=== PATIENT | male | born 1950 | race Hispanic/Latino ===

== ENCOUNTER 2021-03-19 14:05 | Inpatient (IN) | payer OTHER ==
[~2021-03-19] VITALS: Ht 152.4 cm; Wt 54.9 kg
[~2021-03-19 14:05] MED LIST: ASPI-1197 PO; CILO50TA PO; CLON0.5T4 PO; FURO20TA4 PO; ISOS60TA77 PO; METF-444 PO; METO25TA6 PO; NITR0.4T SL; PANT40TA54 PO; TRAM50TA4 PO; VALS40TA11 PO
[2021-03-19 14:34] LABS: BASOPHILS % (AUTO) 0.1 % (0.0-5.0); HEMATOCRIT 41.5 % (42-54); LYMPHOCYTES % (AUTO) 9.3 % (21.0-51.0); MEAN CORPUSCULAR HEMOGLOBIN 28.9 pg (27.0-33.0); MEAN CORPUSCULAR HGB CONC 32.8 g/dL (32.0-36.0); MEAN CORPUSCULAR VOLUME 88.1 fL (79-99); MONOCYTES % (AUTO) 8.1 % (3.0-13.0); PLATELET COUNT (AUTO) 185 K/uL (130-400); RED BLOOD CELL COUNT(AUTO) 4.71 MIL/uL (4.50-6.20); RED CELL DISTRIBUTION WIDTH 15.1 % (11.0-15.5); WHITE BLOOD COUNT (AUTO) 11.4 K/uL (4.8-10.8)
[2021-03-19 14:42] LABS: CREATININE 1.1 mg/dL (0.5-1.5); POTASSIUM 4.4 mmol/L (3.5-5.1)
[2021-03-19 14:44] LABS: ABG BASE EXCESS -2.6 mmol/L (-2.0-3.0); ABG HCO3 20.4 mmol/L (21.0-28.0); ABG OXYGEN SATURATION 82.9 % (95.0-99.0); ABG PCO2 31 mmHg (35-48)
[2021-03-19 14:47] VITALS: BP 133/67
[2021-03-19 14:52] LABS: ALBUMIN 2.6 g/dL (3.5-5.0); BILIRUBIN,TOTAL 0.8 mg/dL (0.2-1.0); CRP QUANTITATIVE 118.3 mg/L (0.00-9.0); TOTAL PROTEIN, SERUM 7.7 g/dL (6.0-8.3)
[2021-03-19 17:00] VITALS: BP 114/74
[2021-03-19] MEDS ORDERED: GLUCAGON 1MG KIT 1 MG ML IM PRN (17:00)
[2021-03-19] MEDS ORDERED: VANCOMYCIN PROTOCOL PER PHARMACY IV SCH (17:00)
[2021-03-19] MEDS ORDERED: LACTATED RINGERS 1000ML 1,000 ML IV SCH (17:00)
[2021-03-19] MEDS ORDERED: DEXAMETHASONE SOD PHOSPHATE 4 MG/ML 1ML VIAL IVP SCH (17:00)
[2021-03-19] MEDS ORDERED: PHARMACY COMMUNICATION***REMDESIVIR ORDER MISC SCH (17:00)
[2021-03-19] MEDS ORDERED: DEXTROSE 50%-WATER 50 ML DISP.SYRIN IV PRN (17:00)
[2021-03-19 17:18] LABS: HEMOGLOBIN A1C 7.7 % (4.0-6.0)
[2021-03-19] MEDS ORDERED: ACETAMINOPHEN 325 MG TAB PO PRN (17:30)
[2021-03-19] MEDS ORDERED: ACETAMINOPHEN WITH CODEINE 1 TAB TAB PO PRN (17:30)
[2021-03-19] MEDS ORDERED: GUAIFENESIN-DM 200/20 MG 10 ML PO PRN (17:30)
[2021-03-19] MEDS ORDERED: ONDANSETRON 4MG INJ IV PRN (17:30)
[2021-03-19] MEDS ORDERED: LACTULOSE 20 GM/30 ML UDCUP PO PRN (17:30)
[2021-03-19] MEDS ORDERED: HYDRALAZINE 20MG/ML VIAL IV PRN (17:30)
[2021-03-19] MEDS ORDERED: DIPHENHYDRAMINE HCL 25 MG CAPSULE PO PRN (17:30)
[2021-03-19] MEDS ORDERED: MAG/ALUM/SIMETH 30 ML UDCUP PO PRN (17:30)
[2021-03-19] MEDS ORDERED: NITROGLYCERIN 0.4 MG SL TAB SL PRN (17:30)
[2021-03-19] MEDS ORDERED: FAMOTIDINE 20MG VIAL IV SCH (17:35)
[2021-03-19] MEDS ORDERED: COMPOUND IV REFRIGERATED 1 EACH IVSOLN MISC PRN (18:00)
[2021-03-19] MEDS: 0.9% NACL 250ML IVPB SCH (18:12)
[2021-03-19] MEDS: DOXYCYCLINE 100MG+NS 250ML IV SCH (18:12)
[2021-03-19] MEDS: ENOXAPARIN SODIUM 30 MG/0.3 ML SQ SCH ×2 (18:12→21:00)
[2021-03-19] MEDS: CEFEPIME HCL 2 GM VIAL IVP SCH (18:12)
[2021-03-19] MEDS: VANCOMYCIN 1G/250ML KIT 250 ML IV SCH (18:13)
[2021-03-19 18:22] VITALS: BP 116/72
[2021-03-19] MEDS ORDERED: ALBUTEROL INHALER 90MCG/INH IH PRN (18:30)
[2021-03-19 19:24] VITALS: BP 122/67
[2021-03-19] MEDS ORDERED: REMDESIVIR (EUA) 520 200 MG in 0.9% NACL 250ML 250 ML IV SCH (20:00)
[2021-03-19] MEDS ORDERED: ATORVASTATIN 20 MG TABLET PO SCH (21:00)
[2021-03-19] MEDS: INSULIN HUMULIN R 100 UNIT/ML 3ML SQ SCH (21:00)
[2021-03-19 23:19] VITALS: BP 131/74
[2021-03-20] VITALS (9 sets, daily range): BP systolic 105–153; BP diastolic 61–81
[2021-03-20] MEDS ORDERED: 0.9%NACL 100ML 100 ML ONE (05:35)
[2021-03-20] MEDS: 0.9% NACL 250ML IVPB SCH ×2 (05:52→18:27)
[2021-03-20] MEDS: DOXYCYCLINE 100MG+NS 250ML IV SCH ×2 (05:52→18:27)
[2021-03-20] MEDS: CEFEPIME HCL 2 GM VIAL IVP SCH ×2 (05:52→18:27)
[2021-03-20] MEDS ORDERED: IOHEXOL 350 MG/ML 100ML INFUS..BTL IV ONE (06:17)
[2021-03-20] MEDS ORDERED: PHARMACY COMMUNICATION MISC SCH (06:30)
[2021-03-20] MEDS: REMDESIVIR LABS MISC SCH (06:54)
[2021-03-20] MEDS: DEXAMETHASONE SOD PHOSPHATE 4 MG/ML 1ML VIAL IVP SCH (06:54)
[2021-03-20] MEDS: LEVOTHYROXINE 50 MCG TABLET PO SCH (07:11)
[2021-03-20 07:13] LABS: ALBUMIN 2.1 g/dL (3.5-5.0); BILIRUBIN,TOTAL 0.7 mg/dL (0.2-1.0); CRP QUANTITATIVE 101.2 mg/L (0.00-9.0); POTASSIUM 4.2 mmol/L (3.5-5.1); TOTAL PROTEIN, SERUM 6.7 g/dL (6.0-8.3)
[2021-03-20] MEDS: INSULIN HUMULIN R 100 UNIT/ML 3ML SQ SCH ×4 (07:30→20:23)
[2021-03-20] MEDS: PANTOPRAZOLE 40 MG/VIAL IVP SCH (08:42)
[2021-03-20] MEDS: ENOXAPARIN SODIUM 40 MG/0.4 ML SYRINGE SQ SCH ×2 (08:42→21:00)
[2021-03-20] MEDS: BARICITINIB (EUA) 2 MG TABLET PO SCH (08:42)
[2021-03-20] MEDS ORDERED: ENOXAPARIN SODIUM 0.5 MG/KG EACH SQ SCH (09:00)
[2021-03-20] MEDS ORDERED: LISINOPRIL 20 MG TABLET PO SCH (09:00)
[2021-03-20] MEDS ORDERED: CLOPIDOGREL 75MG TAB PO SCH (09:00)
[2021-03-20] MEDS ORDERED: ASPIRIN 325MG TAB ONE (12:03)
[2021-03-20 17:18] LABS: BASOPHILS % (AUTO) 0.1 % (0.0-5.0); HEMATOCRIT 38.4 % (42-54); LYMPHOCYTES % (AUTO) 14.5 % (21.0-51.0); MEAN CORPUSCULAR HEMOGLOBIN 28.2 pg (27.0-33.0); MEAN CORPUSCULAR HGB CONC 32.3 g/dL (32.0-36.0); MEAN CORPUSCULAR VOLUME 87.3 fL (79-99); NEUTROPHILS % (AUTO) 78.7 % (40.0-77.0); PLATELET COUNT (AUTO) 182 K/uL (130-400); WHITE BLOOD COUNT (AUTO) 6.7 K/uL (4.8-10.8)
[2021-03-20] MEDS: VANCOMYCIN 1G/250ML KIT 250 ML IV SCH (18:27)
[2021-03-20] MEDS: ATORVASTATIN 40 MG TABLET PO SCH (21:05)
[2021-03-20] MEDS: REMDESIVIR (EUA) 520 100 MG in 0.9% NACL 250ML 250 ML IV SCH (21:05)
[2021-03-21] VITALS (11 sets, daily range): BP systolic 129–160; BP diastolic 51–80
[2021-03-21] MEDS: CEFEPIME HCL 2 GM VIAL IVP SCH ×2 (05:29→17:25)
[2021-03-21] MEDS: DOXYCYCLINE 100MG+NS 250ML IV SCH ×2 (05:29→17:25)
[2021-03-21] MEDS: 0.9% NACL 250ML IVPB SCH ×2 (05:29→17:25)
[2021-03-21] MEDS: REMDESIVIR LABS MISC SCH (06:00)
[2021-03-21] MEDS: LEVOTHYROXINE 50 MCG TABLET PO SCH (06:25)
[2021-03-21] MEDS: DEXAMETHASONE SOD PHOSPHATE 4 MG/ML 1ML VIAL IVP SCH ×3 (06:25→21:00)
[2021-03-21] MEDS: INSULIN HUMULIN R 100 UNIT/ML 3ML SQ SCH ×4 (07:30→20:30)
[2021-03-21 08:21] LABS: BASOPHILS % (AUTO) 0.2 % (0.0-5.0); EOSINOPHILS % (AUTO) 0.1 % (0.0-8.0); HEMATOCRIT 41.8 % (42-54); LYMPHOCYTES % (AUTO) 9.4 % (21.0-51.0); MEAN CORPUSCULAR HEMOGLOBIN 28.8 pg (27.0-33.0); MEAN CORPUSCULAR HGB CONC 32.5 g/dL (32.0-36.0); MEAN CORPUSCULAR VOLUME 88.4 fL (79-99); MONOCYTES % (AUTO) 5.9 % (3.0-13.0); NEUTROPHILS % (AUTO) 83.2 % (40.0-77.0); PLATELET COUNT (AUTO) 173 K/uL (130-400); RED BLOOD CELL COUNT(AUTO) 4.73 MIL/uL (4.50-6.20); RED CELL DISTRIBUTION WIDTH 15.1 % (11.0-15.5); WHITE BLOOD COUNT (AUTO) 9.6 K/uL (4.8-10.8)
[2021-03-21 08:39] LABS: CRP QUANTITATIVE 95.5 mg/L (0.00-9.0)
[2021-03-21] MEDS ORDERED: ENOXAPARIN SODIUM 0.5 MG/KG EACH SQ SCH (09:00)
[2021-03-21] MEDS ORDERED: ENOXAPARIN SODIUM 40 MG/0.4 ML SYRINGE SQ SCH (09:00)
[2021-03-21] MEDS: PANTOPRAZOLE 40 MG/VIAL IVP SCH (10:21)
[2021-03-21] MEDS: BARICITINIB (EUA) 2 MG TABLET PO SCH (10:21)
[2021-03-21 11:47] LABS: ALBUMIN 2.4 g/dL (3.5-5.0); BILIRUBIN,DIRECT 0.3 mg/dL (0.0-0.3); TOTAL PROTEIN, SERUM 6.9 g/dL (6.0-8.3)
[2021-03-21] MEDS: VANCOMYCIN 1G/250ML KIT 250 ML IV SCH (19:09)
[2021-03-21 20:07] LABS: APPEARANCE,URINE Clear (CLEAR); BILIRUBIN,URINE Negative (NEGATIVE); COLOR,URINE Yellow (YELLOW); GLUCOSE, URINE (UA) Negative (NEGATIVE); KETONES,URINE Negative (NEGATIVE); LEUKOCYTE ESTERASE ,URINE Negative (NEGATIVE); NITRATE,URINE Negative (NEGATIVE); OCCULT BLOOD,URINE Negative (NEGATIVE); PH,URINE 6.5 (5.0-8.0); PROTEIN,URINE POS 1+ mg/dL (NEGATIVE); UROBILINOGEN,URINE 0.2 mg/dL (0.2-1.0)
[2021-03-21 20:15] LABS: BACTERIA,URINE Rare /HPF (None Seen); RBC,URINE 0-1 /HPF (0-1); SQUAMOUS EPITHELIAL CELL,UR Rare /HPF (0-2); WBC,URINE 0-1 /HPF (0-1)
[2021-03-21] MEDS: ENOXAPARIN SODIUM 40 MG/0.4 ML SYRINGE SQ SCH (20:30)
[2021-03-21] MEDS: ATORVASTATIN 40 MG TABLET PO SCH (20:30)
[2021-03-21] MEDS: REMDESIVIR (EUA) 520 100 MG in 0.9% NACL 250ML 250 ML IV SCH (20:38)
[2021-03-22] VITALS (32 sets, daily range): BP systolic 119–177; BP diastolic 59–96
[2021-03-22] MEDS ORDERED: PROPOFOL 1000 MG/100 ML 100 ML IV ONE (01:19)
[2021-03-22 03:58] LABS: BASOPHILS % (AUTO) 0.1 % (0.0-5.0); HEMATOCRIT 37.8 % (42-54); LYMPHOCYTES % (AUTO) 8.9 % (21.0-51.0); MEAN CORPUSCULAR HEMOGLOBIN 28.5 pg (27.0-33.0); MEAN CORPUSCULAR HGB CONC 32.8 g/dL (32.0-36.0); MEAN CORPUSCULAR VOLUME 86.9 fL (79-99); NEUTROPHILS % (AUTO) 83.3 % (40.0-77.0); PLATELET COUNT (AUTO) 182 K/uL (130-400); RED BLOOD CELL COUNT(AUTO) 4.35 MIL/uL (4.50-6.20); WHITE BLOOD COUNT (AUTO) 8.7 K/uL (4.8-10.8)
[2021-03-22 04:08] LABS: HEMOGLOBIN A1C 7.9 % (4.0-6.0)
[2021-03-22 04:25] LABS: ALBUMIN 2.2 g/dL (3.5-5.0); BILIRUBIN,TOTAL 0.8 mg/dL (0.2-1.0); CREATININE 0.8 mg/dL (0.5-1.5); CRP QUANTITATIVE 64.9 mg/L (0.00-9.0); POTASSIUM 4.4 mmol/L (3.5-5.1); TOTAL PROTEIN, SERUM 6.6 g/dL (6.0-8.3)
[2021-03-22 04:28] LABS: ABG BASE EXCESS -4.4 mmol/L (-2.0-3.0); ABG HCO3 18.5 mmol/L (21.0-28.0); ABG OXYGEN SATURATION 94.5 % (95.0-99.0); ABG PCO2 29 mmHg (35-48)
[2021-03-22] MEDS: DOXYCYCLINE 100MG+NS 250ML IV SCH ×2 (05:40→17:15)
[2021-03-22] MEDS: 0.9% NACL 250ML IVPB SCH ×2 (05:40→17:15)
[2021-03-22] MEDS: CEFEPIME HCL 2 GM VIAL IVP SCH ×2 (05:40→17:15)
[2021-03-22] MEDS: REMDESIVIR LABS MISC SCH (06:24)
[2021-03-22] MEDS: LEVOTHYROXINE 50 MCG TABLET PO SCH (06:32)
[2021-03-22] MEDS: INSULIN HUMULIN R 100 UNIT/ML 3ML SQ SCH ×4 (07:30→20:53)
[2021-03-22] MEDS: PANTOPRAZOLE 40 MG/VIAL IVP SCH (09:56)
[2021-03-22] MEDS: DEXAMETHASONE SOD PHOSPHATE 4 MG/ML 1ML VIAL IVP SCH ×2 (09:56→20:48)
[2021-03-22] MEDS: ENOXAPARIN SODIUM 40 MG/0.4 ML SYRINGE SQ SCH ×2 (09:57→20:52)
[2021-03-22] MEDS: CLOPIDOGREL 75MG TAB PO SCH (09:57)
[2021-03-22] MEDS: BARICITINIB (EUA) 2 MG TABLET PO SCH (11:22)
[2021-03-22] MEDS ORDERED: CLOP75TA32 PO (15:50)
[2021-03-22] MEDS ORDERED: AMIT50TA3 PO (15:50)
[2021-03-22] MEDS ORDERED: LEVO50CA4 PO (15:50)
[2021-03-22] MEDS ORDERED: ZINC220C6 PO (15:50)
[2021-03-22] MEDS ORDERED: ACET-2247 PO (15:50)
[2021-03-22] MEDS ORDERED: ATOR40TA71 PO (15:50)
[2021-03-22] MEDS ORDERED: SERT-438 PO (15:50)
[2021-03-22] MEDS ORDERED: METF-444 PO (15:50)
[2021-03-22] MEDS ORDERED: PREG100C55 PO (15:50)
[2021-03-22] MEDS ORDERED: AZIT250T9 PO (15:55)
[2021-03-22] MEDS: VANCOMYCIN 1G/250ML KIT 250 ML IV SCH (18:27)
[2021-03-22] MEDS: REMDESIVIR (EUA) 520 100 MG in 0.9% NACL 250ML 250 ML IV SCH (20:47)
[2021-03-22] MEDS: ATORVASTATIN 40 MG TABLET PO SCH (20:48)
[2021-03-23] VITALS (24 sets, daily range): BP systolic 105–153; BP diastolic 52–86
[2021-03-23 04:53] LABS: BASOPHILS % (AUTO) 0.2 % (0.0-5.0); HEMATOCRIT 42.6 % (42-54); LYMPHOCYTES % (AUTO) 6.6 % (21.0-51.0); MEAN CORPUSCULAR HEMOGLOBIN 28.4 pg (27.0-33.0); MEAN CORPUSCULAR HGB CONC 31.7 g/dL (32.0-36.0); MEAN CORPUSCULAR VOLUME 89.5 fL (79-99); MONOCYTES % (AUTO) 5.3 % (3.0-13.0); NEUTROPHILS % (AUTO) 86.5 % (40.0-77.0); PLATELET COUNT (AUTO) 172 K/uL (130-400); RED BLOOD CELL COUNT(AUTO) 4.76 MIL/uL (4.50-6.20); RED CELL DISTRIBUTION WIDTH 14.9 % (11.0-15.5); WHITE BLOOD COUNT (AUTO) 8.7 K/uL (4.8-10.8)
[2021-03-23 05:30] LABS: ALBUMIN 2.3 g/dL (3.5-5.0); CREATININE 0.9 mg/dL (0.5-1.5); CRP QUANTITATIVE 50.9 mg/L (0.00-9.0); POTASSIUM 4.8 mmol/L (3.5-5.1)
[2021-03-23] MEDS: CEFEPIME HCL 2 GM VIAL IVP SCH ×2 (05:36→16:03)
[2021-03-23] MEDS: 0.9% NACL 250ML IVPB SCH ×2 (05:36→16:03)
[2021-03-23] MEDS: DOXYCYCLINE 100MG+NS 250ML IV SCH ×2 (05:36→16:03)
[2021-03-23] MEDS: INSULIN HUMULIN R 100 UNIT/ML 3ML SQ SCH ×4 (05:47→21:00)
[2021-03-23] MEDS: LEVOTHYROXINE 50 MCG TABLET PO SCH (06:25)
[2021-03-23] MEDS: REMDESIVIR LABS MISC SCH (06:25)
[2021-03-23 06:49] LABS: BILIRUBIN,TOTAL 0.9 mg/dL (0.2-1.0)
[2021-03-23] MEDS: BARICITINIB (EUA) 2 MG TABLET PO SCH (08:15)
[2021-03-23] MEDS: DEXAMETHASONE SOD PHOSPHATE 4 MG/ML 1ML VIAL IVP SCH ×2 (08:15→21:16)
[2021-03-23] MEDS: PANTOPRAZOLE 40 MG/VIAL IVP SCH (08:15)
[2021-03-23] MEDS: ENOXAPARIN SODIUM 40 MG/0.4 ML SYRINGE SQ SCH (08:16)
[2021-03-23] MEDS: CLOPIDOGREL 75MG TAB PO SCH (08:47)
[2021-03-23] MEDS ORDERED: ENOXAPARIN SODIUM 30 MG/0.3 ML SQ SCH (09:00)
[2021-03-23] MEDS ORDERED: DEXMEDETOMIDINE 400MCG/NS100ML IV PRN (09:00)
[2021-03-23] MEDS: VANCOMYCIN 1G/250ML KIT 250 ML IV SCH (17:40)
[2021-03-23] MEDS: REMDESIVIR (EUA) 520 100 MG in 0.9% NACL 250ML 250 ML IV SCH (20:44)
[2021-03-23] MEDS: ATORVASTATIN 40 MG TABLET PO SCH (21:17)
[2021-03-24] VITALS (21 sets, daily range): BP systolic 71–145; BP diastolic 26–79
[2021-03-24] MEDS: ENOXAPARIN SODIUM 60 MG/0.6 ML SQ SCH ×2 (01:31→11:55)
[2021-03-24 04:17] LABS: BASOPHILS % (AUTO) 0.1 % (0.0-5.0); EOSINOPHILS % (AUTO) 0.1 % (0.0-8.0); HEMATOCRIT 38.3 % (42-54); LYMPHOCYTES % (AUTO) 4.1 % (21.0-51.0); MEAN CORPUSCULAR HEMOGLOBIN 28.4 pg (27.0-33.0); MEAN CORPUSCULAR HGB CONC 33.2 g/dL (32.0-36.0); MEAN CORPUSCULAR VOLUME 85.7 fL (79-99); MONOCYTES % (AUTO) 3.4 % (3.0-13.0); NEUTROPHILS % (AUTO) 91.3 % (40.0-77.0); PLATELET COUNT (AUTO) 168 K/uL (130-400); RED BLOOD CELL COUNT(AUTO) 4.47 MIL/uL (4.50-6.20); RED CELL DISTRIBUTION WIDTH 14.7 % (11.0-15.5); WHITE BLOOD COUNT (AUTO) 11.9 K/uL (4.8-10.8)
[2021-03-24] MEDS: DOXYCYCLINE 100MG+NS 250ML IV SCH ×2 (04:30→17:52)
[2021-03-24] MEDS: 0.9% NACL 250ML IVPB SCH ×2 (04:30→17:52)
[2021-03-24] MEDS: CEFEPIME HCL 2 GM VIAL IVP SCH ×2 (04:30→17:52)
[2021-03-24 04:35] LABS: ALBUMIN 2.1 g/dL (3.5-5.0); BILIRUBIN,TOTAL 0.9 mg/dL (0.2-1.0); CREATININE 0.8 mg/dL (0.5-1.5); CRP QUANTITATIVE 33.8 mg/L (0.00-9.0); POTASSIUM 4.7 mmol/L (3.5-5.1); TOTAL PROTEIN, SERUM 6.4 g/dL (6.0-8.3)
[2021-03-24] MEDS: LEVOTHYROXINE 50 MCG TABLET PO SCH (05:51)
[2021-03-24] MEDS: INSULIN HUMULIN R 100 UNIT/ML 3ML SQ SCH ×4 (08:00→20:40)
[2021-03-24] MEDS: PANTOPRAZOLE 40 MG/VIAL IVP SCH (09:04)
[2021-03-24] MEDS: CLOPIDOGREL 75MG TAB PO SCH (09:04)
[2021-03-24] MEDS: DEXAMETHASONE SOD PHOSPHATE 4 MG/ML 1ML VIAL IVP SCH ×2 (09:05→20:31)
[2021-03-24] MEDS: BARICITINIB (EUA) 2 MG TABLET PO SCH (09:05)
[2021-03-24] MEDS: FLUCONAZOLE 200 MG/NS 100 ML 100 ML IV SCH (11:55)
[2021-03-24] MEDS ORDERED: PREGABALIN 100 MG CAPSULE PO PRN (13:30)
[2021-03-24] MEDS: VANCOMYCIN 1G/250ML KIT 250 ML IV SCH (19:46)
[2021-03-24] MEDS: AMITRIPTYLINE 25 MG TABLET PO SCH (20:31)
[2021-03-24] MEDS: ATORVASTATIN 40 MG TABLET PO SCH (20:31)
[2021-03-25] VITALS (16 sets, daily range): BP systolic 105–141; BP diastolic 53–76
[2021-03-25 04:42] LABS: BASOPHILS % (AUTO) 0.2 % (0.0-5.0); HEMATOCRIT 38.3 % (42-54); LYMPHOCYTES % (AUTO) 3.8 % (21.0-51.0); MEAN CORPUSCULAR HEMOGLOBIN 28.4 pg (27.0-33.0); MEAN CORPUSCULAR HGB CONC 32.9 g/dL (32.0-36.0); MEAN CORPUSCULAR VOLUME 86.5 fL (79-99); MONOCYTES % (AUTO) 2.6 % (3.0-13.0); NEUTROPHILS % (AUTO) 91.9 % (40.0-77.0); PLATELET COUNT (AUTO) 145 K/uL (130-400); RED BLOOD CELL COUNT(AUTO) 4.43 MIL/uL (4.50-6.20); RED CELL DISTRIBUTION WIDTH 14.6 % (11.0-15.5); WHITE BLOOD COUNT (AUTO) 11.7 K/uL (4.8-10.8)
[2021-03-25] MEDS: CEFEPIME HCL 2 GM VIAL IVP SCH ×2 (05:01→17:11)
[2021-03-25] MEDS: 0.9% NACL 250ML IVPB SCH ×2 (05:01→17:11)
[2021-03-25] MEDS: DOXYCYCLINE 100MG+NS 250ML IV SCH ×2 (05:01→17:11)
[2021-03-25 05:02] LABS: ALBUMIN 2.1 g/dL (3.5-5.0); BILIRUBIN,TOTAL 0.9 mg/dL (0.2-1.0); CREATININE 0.8 mg/dL (0.5-1.5); CRP QUANTITATIVE 34.8 mg/L (0.00-9.0); POTASSIUM 4.6 mmol/L (3.5-5.1); TOTAL PROTEIN, SERUM 6.3 g/dL (6.0-8.3)
[2021-03-25] MEDS: LEVOTHYROXINE 50 MCG TABLET PO SCH (06:06)
[2021-03-25] MEDS: VANCOMYCIN 1G/250ML KIT 250 ML IV SCH ×2 (06:06→19:36)
[2021-03-25] MEDS: INSULIN HUMULIN R 100 UNIT/ML 3ML SQ SCH ×4 (06:13→20:23)
[2021-03-25] MEDS: ENOXAPARIN SODIUM 60 MG/0.6 ML SQ SCH ×2 (09:37→20:17)
[2021-03-25] MEDS: BARICITINIB (EUA) 2 MG TABLET PO SCH (10:55)
[2021-03-25] MEDS: DEXAMETHASONE SOD PHOSPHATE 4 MG/ML 1ML VIAL IVP SCH ×2 (10:55→20:16)
[2021-03-25] MEDS: PANTOPRAZOLE 40 MG/VIAL IVP SCH (10:55)
[2021-03-25] MEDS: FLUCONAZOLE 200 MG/NS 100 ML 100 ML IV SCH (10:55)
[2021-03-25] MEDS: SERTRALINE HCL 50 MG TABLET PO SCH (10:56)
[2021-03-25] MEDS: CLOPIDOGREL 75MG TAB PO SCH (10:56)
[2021-03-25] MEDS: AMITRIPTYLINE 25 MG TABLET PO SCH (20:16)
[2021-03-25] MEDS: ATORVASTATIN 40 MG TABLET PO SCH (20:16)
[2021-03-26] VITALS (11 sets, daily range): BP systolic 119–148; BP diastolic 65–82
[2021-03-26] MEDS: 0.9% NACL 250ML IVPB SCH ×2 (04:59→16:17)
[2021-03-26] MEDS: CEFEPIME HCL 2 GM VIAL IVP SCH ×2 (04:59→16:14)
[2021-03-26] MEDS: DOXYCYCLINE 100MG+NS 250ML IV SCH ×2 (05:00→16:13)
[2021-03-26 05:50] LABS: BASOPHILS % (AUTO) 0.2 % (0.0-5.0); LYMPHOCYTES % (AUTO) 3.8 % (21.0-51.0); MEAN CORPUSCULAR HEMOGLOBIN 28.5 pg (27.0-33.0); MEAN CORPUSCULAR VOLUME 86.4 fL (79-99); MONOCYTES % (AUTO) 4.8 % (3.0-13.0); PLATELET COUNT (AUTO) 128 K/uL (130-400); RED BLOOD CELL COUNT(AUTO) 4.28 MIL/uL (4.50-6.20); RED CELL DISTRIBUTION WIDTH 14.9 % (11.0-15.5)
[2021-03-26] MEDS: INSULIN HUMULIN R 100 UNIT/ML 3ML SQ SCH ×4 (05:54→21:00)
[2021-03-26 06:21] LABS: ALBUMIN 1.9 g/dL (3.5-5.0); BILIRUBIN,TOTAL 0.8 mg/dL (0.2-1.0); CREATININE 0.8 mg/dL (0.5-1.5); CRP QUANTITATIVE 12.8 mg/L (0.00-9.0); POTASSIUM 4.4 mmol/L (3.5-5.1); TOTAL PROTEIN, SERUM 5.8 g/dL (6.0-8.3)
[2021-03-26] MEDS: VANCOMYCIN 1G/250ML KIT 250 ML IV SCH ×2 (06:30→18:20)
[2021-03-26] MEDS: LEVOTHYROXINE 50 MCG TABLET PO SCH ×2 (06:30→10:35)
[2021-03-26] MEDS: FLUCONAZOLE 200 MG/NS 100 ML 100 ML IV SCH (09:40)
[2021-03-26] MEDS: DEXAMETHASONE SOD PHOSPHATE 4 MG/ML 1ML VIAL IVP SCH ×2 (09:43→21:33)
[2021-03-26] MEDS: PANTOPRAZOLE 40 MG/VIAL IVP SCH (09:43)
[2021-03-26] MEDS: ENOXAPARIN SODIUM 60 MG/0.6 ML SQ SCH ×2 (09:46→21:33)
[2021-03-26] MEDS: BARICITINIB (EUA) 2 MG TABLET PO SCH (09:46)
[2021-03-26] MEDS: SERTRALINE HCL 50 MG TABLET PO SCH (09:47)
[2021-03-26] MEDS: CLOPIDOGREL 75MG TAB PO SCH ×2 (09:47→10:34)
[2021-03-26] MEDS: ATORVASTATIN 40 MG TABLET PO SCH ×2 (21:00→21:32)
[2021-03-26] MEDS: AMITRIPTYLINE 25 MG TABLET PO SCH (21:32)
[2021-03-27] VITALS (7 sets, daily range): BP systolic 91–137; BP diastolic 65–77
[2021-03-27 03:53] LABS: BASOPHILS % (AUTO) 0.1 % (0.0-5.0); HEMATOCRIT 40.7 % (42-54); LYMPHOCYTES % (AUTO) 4.7 % (21.0-51.0); MEAN CORPUSCULAR HEMOGLOBIN 28.7 pg (27.0-33.0); MEAN CORPUSCULAR HGB CONC 32.4 g/dL (32.0-36.0); MEAN CORPUSCULAR VOLUME 88.5 fL (79-99); MONOCYTES % (AUTO) 3.8 % (3.0-13.0); NEUTROPHILS % (AUTO) 90.2 % (40.0-77.0); PLATELET COUNT (AUTO) 124 K/uL (130-400); RED CELL DISTRIBUTION WIDTH 15.2 % (11.0-15.5); WHITE BLOOD COUNT (AUTO) 10.3 K/uL (4.8-10.8)
[2021-03-27 04:17] LABS: CREATININE 0.9 mg/dL (0.5-1.5); CRP QUANTITATIVE 5.3 mg/L (0.00-9.0); POTASSIUM 4.6 mmol/L (3.5-5.1); TOTAL PROTEIN, SERUM 6.1 g/dL (6.0-8.3)
[2021-03-27] MEDS: DOXYCYCLINE 100MG+NS 250ML IV SCH ×2 (05:43→17:02)
[2021-03-27] MEDS: CEFEPIME HCL 2 GM VIAL IVP SCH ×2 (05:43→16:59)
[2021-03-27] MEDS: LEVOTHYROXINE 50 MCG TABLET PO SCH ×2 (05:44)
[2021-03-27] MEDS: VANCOMYCIN 1G/250ML KIT 250 ML IV SCH ×2 (05:51→17:28)
[2021-03-27] MEDS: INSULIN HUMULIN R 100 UNIT/ML 3ML SQ SCH ×4 (06:59→21:28)
[2021-03-27] MEDS: DEXAMETHASONE SOD PHOSPHATE 4 MG/ML 1ML VIAL IVP SCH ×2 (09:00→21:26)
[2021-03-27] MEDS: CLOPIDOGREL 75MG TAB PO SCH ×2 (09:00→09:13)
[2021-03-27] MEDS: SERTRALINE HCL 50 MG TABLET PO SCH ×2 (09:00→09:12)
[2021-03-27] MEDS: BARICITINIB (EUA) 2 MG TABLET PO SCH (09:09)
[2021-03-27] MEDS: ENOXAPARIN SODIUM 60 MG/0.6 ML SQ SCH ×2 (09:14→21:31)
[2021-03-27] MEDS: PANTOPRAZOLE 40 MG/VIAL IVP SCH (14:18)
[2021-03-27] MEDS: FLUCONAZOLE 200 MG/NS 100 ML 100 ML IV SCH (14:22)
[2021-03-27] MEDS: 0.9% NACL 250ML IVPB SCH (17:02)
[2021-03-27] MEDS: ATORVASTATIN 40 MG TABLET PO SCH ×2 (21:00→21:27)
[2021-03-27] MEDS: AMITRIPTYLINE 25 MG TABLET PO SCH (21:27)
[2021-03-28 03:57] VITALS: BP 105/68
[2021-03-28 05:09] LABS: BASOPHILS % (AUTO) 0.1 % (0.0-5.0); EOSINOPHILS % (AUTO) 0.2 % (0.0-8.0); HEMATOCRIT 38.6 % (42-54); MEAN CORPUSCULAR HEMOGLOBIN 28.5 pg (27.0-33.0); MEAN CORPUSCULAR HGB CONC 32.9 g/dL (32.0-36.0); MEAN CORPUSCULAR VOLUME 86.7 fL (79-99); MONOCYTES % (AUTO) 3.7 % (3.0-13.0); NEUTROPHILS % (AUTO) 90.7 % (40.0-77.0); PLATELET COUNT (AUTO) 121 K/uL (130-400); RED BLOOD CELL COUNT(AUTO) 4.45 MIL/uL (4.50-6.20); RED CELL DISTRIBUTION WIDTH 15.1 % (11.0-15.5); WHITE BLOOD COUNT (AUTO) 10.1 K/uL (4.8-10.8)
[2021-03-28] MEDS: CEFEPIME HCL 2 GM VIAL IVP SCH ×3 (05:17→20:30)
[2021-03-28] MEDS: DOXYCYCLINE 100MG+NS 250ML IV SCH ×3 (05:18→21:48)
[2021-03-28] MEDS: 0.9% NACL 250ML IVPB SCH (05:18)
[2021-03-28 05:58] LABS: CREATININE 0.7 mg/dL (0.5-1.5); CRP QUANTITATIVE 5.7 mg/L (0.00-9.0); POTASSIUM 4.7 mmol/L (3.5-5.1)
[2021-03-28] MEDS: VANCOMYCIN 1G/250ML KIT 250 ML IV SCH ×2 (06:23→18:36)
[2021-03-28] MEDS: LEVOTHYROXINE 50 MCG TABLET PO SCH ×2 (06:23→06:24)
[2021-03-28] MEDS: INSULIN HUMULIN R 100 UNIT/ML 3ML SQ SCH ×4 (06:25→20:45)
[2021-03-28 07:40] VITALS: BP 100/70
[2021-03-28] MEDS: SERTRALINE HCL 50 MG TABLET PO SCH ×2 (09:00→09:43)
[2021-03-28] MEDS: CLOPIDOGREL 75MG TAB PO SCH ×2 (09:00→09:43)
[2021-03-28] MEDS: FLUCONAZOLE 200 MG/NS 100 ML 100 ML IV SCH (09:42)
[2021-03-28] MEDS: PANTOPRAZOLE 40 MG/VIAL IVP SCH (09:43)
[2021-03-28] MEDS: ENOXAPARIN SODIUM 60 MG/0.6 ML SQ SCH ×2 (09:43→20:32)
[2021-03-28] MEDS: DEXAMETHASONE SOD PHOSPHATE 4 MG/ML 1ML VIAL IVP SCH ×2 (09:44→20:30)
[2021-03-28] MEDS: BARICITINIB (EUA) 2 MG TABLET PO SCH (09:45)
[2021-03-28] MEDS: 0.9% NACL 250ML 250 ML IV SCH ×2 (09:49→21:48)
[2021-03-28] MEDS ORDERED: DOXYCYCLINE 100MG+NS 250ML IV SCH (10:00)
[2021-03-28] MEDS ORDERED: 0.9% NACL 250ML IVPB SCH (10:00)
[2021-03-28 11:54] VITALS: BP 105/77
[2021-03-28 19:50] VITALS: BP 113/72
[2021-03-28] MEDS: AMITRIPTYLINE 25 MG TABLET PO SCH (20:30)
[2021-03-28] MEDS: ATORVASTATIN 40 MG TABLET PO SCH (20:31)
[2021-03-28 23:58] VITALS: BP 118/67
[2021-03-29] MEDS: 0.9% NACL 250ML 250 ML IV SCH ×6 (01:29→22:11)
[2021-03-29] MEDS: VANCOMYCIN 750MG VIAL IVPB SCH ×3 (01:29→17:55)
[2021-03-29 03:08] VITALS: BP 111/64
[2021-03-29 04:41] LABS: BASOPHILS % (AUTO) 0.1 % (0.0-5.0); HEMATOCRIT 36.9 % (42-54); LYMPHOCYTES % (AUTO) 4.6 % (21.0-51.0); MEAN CORPUSCULAR HEMOGLOBIN 28.3 pg (27.0-33.0); MEAN CORPUSCULAR VOLUME 88.5 fL (79-99); NEUTROPHILS % (AUTO) 88.9 % (40.0-77.0); PLATELET COUNT (AUTO) 116 K/uL (130-400); RED BLOOD CELL COUNT(AUTO) 4.17 MIL/uL (4.50-6.20); RED CELL DISTRIBUTION WIDTH 15.1 % (11.0-15.5); WHITE BLOOD COUNT (AUTO) 9.7 K/uL (4.8-10.8)
[2021-03-29 04:56] LABS: ALBUMIN 1.9 g/dL (3.5-5.0); BILIRUBIN,TOTAL 0.8 mg/dL (0.2-1.0); CREATININE 0.7 mg/dL (0.5-1.5); CRP QUANTITATIVE 12.4 mg/L (0.00-9.0); POTASSIUM 4.4 mmol/L (3.5-5.1); TOTAL PROTEIN, SERUM 5.6 g/dL (6.0-8.3)
[2021-03-29] MEDS: INSULIN HUMULIN R 100 UNIT/ML 3ML SQ SCH ×4 (06:25→20:52)
[2021-03-29] MEDS: LEVOTHYROXINE 50 MCG TABLET PO SCH ×2 (06:38)
[2021-03-29 08:11] VITALS: BP 116/80
[2021-03-29] MEDS: CLOPIDOGREL 75MG TAB PO SCH ×2 (09:00→09:31)
[2021-03-29] MEDS: ENOXAPARIN SODIUM 60 MG/0.6 ML SQ SCH ×2 (09:30→20:51)
[2021-03-29] MEDS: BARICITINIB (EUA) 2 MG TABLET PO SCH (09:31)
[2021-03-29] MEDS: DEXAMETHASONE SOD PHOSPHATE 4 MG/ML 1ML VIAL IVP SCH ×2 (09:31→20:50)
[2021-03-29] MEDS: CEFEPIME HCL 2 GM VIAL IVP SCH ×2 (09:32→20:50)
[2021-03-29] MEDS: DOXYCYCLINE 100MG+NS 250ML IV SCH ×2 (09:33→22:11)
[2021-03-29] MEDS: FLUCONAZOLE 200 MG/NS 100 ML 100 ML IV SCH (09:41)
[2021-03-29] MEDS: SERTRALINE HCL 50 MG TABLET PO SCH (09:41)
[2021-03-29] MEDS: PANTOPRAZOLE 40 MG TAB DR PO SCH (09:45)
[2021-03-29] MEDS ORDERED: PANTOPRAZOLE 40 MG TAB DR PO SCH (10:00)
[2021-03-29 12:04] VITALS: BP 111/74
[2021-03-29 16:01] VITALS: BP 113/75
[2021-03-29 20:10] VITALS: BP 109/74
[2021-03-29] MEDS: AMITRIPTYLINE 25 MG TABLET PO SCH (20:50)
[2021-03-29] MEDS: ATORVASTATIN 40 MG TABLET PO SCH (20:50)
[2021-03-30] VITALS: BP 112/72
[2021-03-30] MEDS: VANCOMYCIN 750MG VIAL IVPB SCH ×3 (02:03→17:43)
[2021-03-30] MEDS: 0.9% NACL 250ML 250 ML IV SCH ×5 (02:03→22:02)
[2021-03-30 04:02] VITALS: BP 128/74
[2021-03-30 06:16] LABS: BASOPHILS % (AUTO) 0.2 % (0.0-5.0); HEMATOCRIT 36.3 % (42-54); LYMPHOCYTES % (AUTO) 3.8 % (21.0-51.0); MEAN CORPUSCULAR HEMOGLOBIN 28.4 pg (27.0-33.0); MEAN CORPUSCULAR HGB CONC 32.8 g/dL (32.0-36.0); MEAN CORPUSCULAR VOLUME 86.6 fL (79-99); MONOCYTES % (AUTO) 5.8 % (3.0-13.0); NEUTROPHILS % (AUTO) 88.8 % (40.0-77.0); PLATELET COUNT (AUTO) 103 K/uL (130-400); RED BLOOD CELL COUNT(AUTO) 4.19 MIL/uL (4.50-6.20); RED CELL DISTRIBUTION WIDTH 15.2 % (11.0-15.5); WHITE BLOOD COUNT (AUTO) 12.2 K/uL (4.8-10.8)
[2021-03-30] MEDS: INSULIN HUMULIN R 100 UNIT/ML 3ML SQ SCH ×4 (06:16→21:26)
[2021-03-30] MEDS: LEVOTHYROXINE 50 MCG TABLET PO SCH (06:20)
[2021-03-30 06:29] LABS: ALBUMIN 1.9 g/dL (3.5-5.0); BILIRUBIN,TOTAL 0.7 mg/dL (0.2-1.0); CREATININE 0.7 mg/dL (0.5-1.5); CRP QUANTITATIVE 3.5 mg/L (0.00-9.0); MAGNESIUM 2.1 mg/dL (1.80-2.40); POTASSIUM 4.5 mmol/L (3.5-5.1); TOTAL PROTEIN, SERUM 5.7 g/dL (6.0-8.3)
[2021-03-30 08:00] VITALS: BP 104/66
[2021-03-30] MEDS: PANTOPRAZOLE 40 MG TAB DR PO SCH (09:18)
[2021-03-30] MEDS: DEXAMETHASONE SOD PHOSPHATE 4 MG/ML 1ML VIAL IVP SCH (09:18)
[2021-03-30] MEDS: SERTRALINE HCL 50 MG TABLET PO SCH (09:19)
[2021-03-30] MEDS: BARICITINIB (EUA) 2 MG TABLET PO SCH (09:19)
[2021-03-30] MEDS: CLOPIDOGREL 75MG TAB PO SCH (09:19)
[2021-03-30] MEDS: DOXYCYCLINE 100MG+NS 250ML IV SCH ×2 (09:21→22:02)
[2021-03-30] MEDS: FLUCONAZOLE 200 MG/NS 100 ML 100 ML IV SCH (09:22)
[2021-03-30] MEDS: CEFEPIME HCL 2 GM VIAL IVP SCH ×2 (09:22→21:11)
[2021-03-30] MEDS: ENOXAPARIN SODIUM 60 MG/0.6 ML SQ SCH ×2 (09:23→21:11)
[2021-03-30 12:00] VITALS: BP 130/74
[2021-03-30 16:00] VITALS: BP 122/60
[2021-03-30 19:10] VITALS: BP 138/82
[2021-03-30] MEDS: AMITRIPTYLINE 25 MG TABLET PO SCH (21:09)
[2021-03-30] MEDS: ATORVASTATIN 40 MG TABLET PO SCH (21:09)
[2021-03-31] VITALS (7 sets, daily range): BP systolic 99–136; BP diastolic 60–77
[2021-03-31] MEDS: LEVOTHYROXINE 50 MCG TABLET PO SCH ×2 (01:04→06:14)
[2021-03-31] MEDS: 0.9% NACL 250ML 250 ML IV SCH ×5 (02:02→22:06)
[2021-03-31] MEDS: VANCOMYCIN 750MG VIAL IVPB SCH ×3 (02:02→18:05)
[2021-03-31 04:38] LABS: BASOPHILS % (AUTO) 0.1 % (0.0-5.0); EOSINOPHILS % (AUTO) 0.3 % (0.0-8.0); LYMPHOCYTES % (AUTO) 5.9 % (21.0-51.0); MEAN CORPUSCULAR HEMOGLOBIN 29.2 pg (27.0-33.0); MEAN CORPUSCULAR HGB CONC 33.2 g/dL (32.0-36.0); MEAN CORPUSCULAR VOLUME 87.9 fL (79-99); MONOCYTES % (AUTO) 7.6 % (3.0-13.0); NEUTROPHILS % (AUTO) 84.6 % (40.0-77.0); PLATELET COUNT (AUTO) 101 K/uL (130-400); RED BLOOD CELL COUNT(AUTO) 4.21 MIL/uL (4.50-6.20); RED CELL DISTRIBUTION WIDTH 15.5 % (11.0-15.5)
[2021-03-31 05:07] LABS: ALBUMIN 1.9 g/dL (3.5-5.0); BILIRUBIN,TOTAL 0.6 mg/dL (0.2-1.0); CREATININE 0.6 mg/dL (0.5-1.5); CRP QUANTITATIVE 6.4 mg/L (0.00-9.0); POTASSIUM 4.4 mmol/L (3.5-5.1); TOTAL PROTEIN, SERUM 5.8 g/dL (6.0-8.3)
[2021-03-31] MEDS: INSULIN HUMULIN R 100 UNIT/ML 3ML SQ SCH ×4 (06:03→20:33)
[2021-03-31] MEDS: PANTOPRAZOLE 40 MG TAB DR PO SCH (08:47)
[2021-03-31] MEDS: FLUCONAZOLE 200 MG/NS 100 ML 100 ML IV SCH (08:47)
[2021-03-31] MEDS: BARICITINIB (EUA) 2 MG TABLET PO SCH (08:47)
[2021-03-31] MEDS: CLOPIDOGREL 75MG TAB PO SCH (08:47)
[2021-03-31] MEDS: SERTRALINE HCL 50 MG TABLET PO SCH (08:48)
[2021-03-31] MEDS: ENOXAPARIN SODIUM 60 MG/0.6 ML SQ SCH ×2 (08:48→20:31)
[2021-03-31] MEDS: DEXAMETHASONE SOD PHOSPHATE 4 MG/ML 1ML VIAL IVP SCH (08:49)
[2021-03-31] MEDS: CEFEPIME HCL 2 GM VIAL IVP SCH ×2 (08:54→20:30)
[2021-03-31] MEDS: DOXYCYCLINE 100MG+NS 250ML IV SCH ×2 (09:59→22:06)
[2021-03-31] MEDS: ATORVASTATIN 40 MG TABLET PO SCH (20:30)
[2021-03-31] MEDS: AMITRIPTYLINE 25 MG TABLET PO SCH (20:30)
[2021-04-01] MEDS: VANCOMYCIN 750MG VIAL IVPB SCH ×3 (02:00→18:00)
[2021-04-01] MEDS: 0.9% NACL 250ML 250 ML IV SCH ×5 (02:00→18:00)
[2021-04-01 03:56] VITALS: BP 102/84
[2021-04-01 04:44] LABS: BASOPHILS % (AUTO) 0.1 % (0.0-5.0); EOSINOPHILS % (AUTO) 0.8 % (0.0-8.0); HEMATOCRIT 34.1 % (42-54); LYMPHOCYTES % (AUTO) 7.4 % (21.0-51.0); MEAN CORPUSCULAR HEMOGLOBIN 28.9 pg (27.0-33.0); MEAN CORPUSCULAR HGB CONC 33.4 g/dL (32.0-36.0); MEAN CORPUSCULAR VOLUME 86.5 fL (79-99); MONOCYTES % (AUTO) 6.6 % (3.0-13.0); NEUTROPHILS % (AUTO) 83.9 % (40.0-77.0); PLATELET COUNT (AUTO) 82 K/uL (130-400); RED BLOOD CELL COUNT(AUTO) 3.94 MIL/uL (4.50-6.20); RED CELL DISTRIBUTION WIDTH 15.4 % (11.0-15.5); WHITE BLOOD COUNT (AUTO) 10.5 K/uL (4.8-10.8)
[2021-04-01 04:59] LABS: ALBUMIN 1.6 g/dL (3.5-5.0); BILIRUBIN,TOTAL 0.6 mg/dL (0.2-1.0); CREATININE 0.7 mg/dL (0.5-1.5); CRP QUANTITATIVE 91.8 mg/L (0.00-9.0); MAGNESIUM 2.1 mg/dL (1.80-2.40); POTASSIUM 4.3 mmol/L (3.5-5.1); TOTAL PROTEIN, SERUM 5.4 g/dL (6.0-8.3)
[2021-04-01] MEDS: LEVOTHYROXINE 50 MCG TABLET PO SCH ×2 (05:37→06:12)
[2021-04-01] MEDS: INSULIN HUMULIN R 100 UNIT/ML 3ML SQ SCH ×4 (06:12→21:14)
[2021-04-01 08:30] VITALS: BP 107/68
[2021-04-01] MEDS: PANTOPRAZOLE 40 MG TAB DR PO SCH (10:26)
[2021-04-01] MEDS: CLOPIDOGREL 75MG TAB PO SCH (10:28)
[2021-04-01] MEDS: DEXAMETHASONE SOD PHOSPHATE 4 MG/ML 1ML VIAL IVP SCH (10:29)
[2021-04-01] MEDS: BARICITINIB (EUA) 2 MG TABLET PO SCH (10:31)
[2021-04-01] MEDS: SERTRALINE HCL 50 MG TABLET PO SCH (10:40)
[2021-04-01] MEDS: ENOXAPARIN SODIUM 60 MG/0.6 ML SQ SCH (10:40)
[2021-04-01] MEDS: CEFEPIME HCL 2 GM VIAL IVP SCH ×2 (12:49→21:03)
[2021-04-01] MEDS: DOXYCYCLINE 100MG+NS 250ML IV SCH ×2 (12:49→22:49)
[2021-04-01 12:52] VITALS: BP 108/54
[2021-04-01 16:50] VITALS: BP 112/63
[2021-04-01 19:44] VITALS: BP 113/70
[2021-04-01] MEDS: ATORVASTATIN 40 MG TABLET PO SCH (21:02)
[2021-04-01] MEDS: AMITRIPTYLINE 25 MG TABLET PO SCH (21:02)
[2021-04-01] MEDS: ENOXAPARIN SODIUM 40 MG/0.4 ML SYRINGE SQ SCH (21:03)
[2021-04-01 23:13] VITALS: BP 140/74
[2021-04-02] MEDS: LEVOTHYROXINE 50 MCG TABLET PO SCH ×2 (01:44→06:11)
[2021-04-02] MEDS: 0.9% NACL 250ML 250 ML IV SCH ×5 (01:59→21:15)
[2021-04-02] MEDS: VANCOMYCIN 750MG VIAL IVPB SCH ×2 (01:59→10:11)
[2021-04-02 03:57] VITALS: BP 155/71
[2021-04-02 04:47] LABS: BASOPHILS % (AUTO) 0.2 % (0.0-5.0); HEMATOCRIT 35.4 % (42-54); LYMPHOCYTES % (AUTO) 7.7 % (21.0-51.0); MEAN CORPUSCULAR HEMOGLOBIN 28.6 pg (27.0-33.0); MEAN CORPUSCULAR HGB CONC 32.8 g/dL (32.0-36.0); MEAN CORPUSCULAR VOLUME 87.4 fL (79-99); MONOCYTES % (AUTO) 4.5 % (3.0-13.0); NEUTROPHILS % (AUTO) 85.1 % (40.0-77.0); PLATELET COUNT (AUTO) 75 K/uL (130-400); RED BLOOD CELL COUNT(AUTO) 4.05 MIL/uL (4.50-6.20); RED CELL DISTRIBUTION WIDTH 15.7 % (11.0-15.5); WHITE BLOOD COUNT (AUTO) 9.3 K/uL (4.8-10.8)
[2021-04-02 05:11] LABS: ALBUMIN 1.7 g/dL (3.5-5.0); BILIRUBIN,TOTAL 0.7 mg/dL (0.2-1.0); CREATININE 0.6 mg/dL (0.5-1.5); CRP QUANTITATIVE 119.8 mg/L (0.00-9.0); POTASSIUM 4.3 mmol/L (3.5-5.1); TOTAL PROTEIN, SERUM 5.7 g/dL (6.0-8.3)
[2021-04-02] MEDS: INSULIN HUMULIN R 100 UNIT/ML 3ML SQ SCH ×4 (06:04→20:41)
[2021-04-02 08:02] VITALS: BP 117/66
[2021-04-02] MEDS: DOXYCYCLINE 100MG+NS 250ML IV SCH ×2 (08:55→21:15)
[2021-04-02] MEDS: CLOPIDOGREL 75MG TAB PO SCH (08:56)
[2021-04-02] MEDS: SERTRALINE HCL 50 MG TABLET PO SCH (08:56)
[2021-04-02] MEDS: ENOXAPARIN SODIUM 40 MG/0.4 ML SYRINGE SQ SCH ×2 (08:56→20:37)
[2021-04-02] MEDS: PANTOPRAZOLE 40 MG TAB DR PO SCH (08:56)
[2021-04-02] MEDS: DEXAMETHASONE SOD PHOSPHATE 4 MG/ML 1ML VIAL IVP SCH ×3 (08:57→21:10)
[2021-04-02] MEDS: CEFEPIME HCL 2 GM VIAL IVP SCH (08:58)
[2021-04-02] MEDS: BARICITINIB (EUA) 2 MG TABLET PO SCH (08:58)
[2021-04-02 11:33] VITALS: BP 104/71
[2021-04-02 15:49] VITALS: BP 108/71
[2021-04-02 19:49] VITALS: BP 122/67
[2021-04-02] MEDS: AMITRIPTYLINE 25 MG TABLET PO SCH (20:36)
[2021-04-02] MEDS: ATORVASTATIN 40 MG TABLET PO SCH (20:37)
[2021-04-02] MEDS: INSULIN GLARGINE 100 UNITS/ML 10 ML VIAL SQ SCH (20:40)
[2021-04-02] MEDS: VANCOMYCIN KIT 1 GM/250 ML IV.KIT IV SCH (21:14)
[2021-04-02 23:19] VITALS: BP 126/78
[2021-04-03 03:25] VITALS: BP 136/67
[2021-04-03 04:21] LABS: BASOPHILS % (AUTO) 0.1 % (0.0-5.0); EOSINOPHILS % (AUTO) 0.2 % (0.0-8.0); HEMATOCRIT 36.1 % (42-54); LYMPHOCYTES % (AUTO) 4.9 % (21.0-51.0); MEAN CORPUSCULAR HGB CONC 33.2 g/dL (32.0-36.0); MEAN CORPUSCULAR VOLUME 87.2 fL (79-99); NEUTROPHILS % (AUTO) 90.1 % (40.0-77.0); PLATELET COUNT (AUTO) 70 K/uL (130-400); RED BLOOD CELL COUNT(AUTO) 4.14 MIL/uL (4.50-6.20); RED CELL DISTRIBUTION WIDTH 15.9 % (11.0-15.5); WHITE BLOOD COUNT (AUTO) 9.3 K/uL (4.8-10.8)
[2021-04-03 04:38] LABS: ALBUMIN 1.7 g/dL (3.5-5.0); BILIRUBIN,TOTAL 0.6 mg/dL (0.2-1.0); CREATININE 0.7 mg/dL (0.5-1.5); CRP QUANTITATIVE 62.4 mg/L (0.00-9.0); POTASSIUM 4.7 mmol/L (3.5-5.1); TOTAL PROTEIN, SERUM 5.8 g/dL (6.0-8.3)
[2021-04-03] MEDS: INSULIN HUMULIN R 100 UNIT/ML 3ML SQ SCH ×4 (05:41→21:28)
[2021-04-03] MEDS: LEVOTHYROXINE 50 MCG TABLET PO SCH ×2 (06:23)
[2021-04-03 07:49] VITALS: BP 115/73
[2021-04-03] MEDS: VANCOMYCIN KIT 1 GM/250 ML IV.KIT IV SCH (08:19)
[2021-04-03] MEDS: ZINC SULFATE 220 CAPSULE PO SCH (08:20)
[2021-04-03] MEDS: ASCORBIC ACID 500 MG TAB PO SCH (08:20)
[2021-04-03] MEDS: 0.9% NACL 250ML 250 ML IV SCH ×4 (08:20→21:24)
[2021-04-03] MEDS: CLOPIDOGREL 75MG TAB PO SCH (08:20)
[2021-04-03] MEDS: PANTOPRAZOLE 40 MG TAB DR PO SCH (08:21)
[2021-04-03] MEDS: ENOXAPARIN SODIUM 40 MG/0.4 ML SYRINGE SQ SCH ×2 (08:21→21:24)
[2021-04-03] MEDS: SERTRALINE HCL 50 MG TABLET PO SCH (08:21)
[2021-04-03] MEDS: DEXAMETHASONE SOD PHOSPHATE 4 MG/ML 1ML VIAL IVP SCH ×2 (08:22→21:22)
[2021-04-03] MEDS: BARICITINIB (EUA) 2 MG TABLET PO SCH (08:23)
[2021-04-03] MEDS: DOXYCYCLINE 100MG+NS 250ML IV SCH ×2 (10:06→21:24)
[2021-04-03 11:53] VITALS: BP 115/61
[2021-04-03] MEDS: AMOX/CLAV 875/125MG TAB PO SCH ×2 (12:03→23:16)
[2021-04-03 16:22] VITALS: BP 119/75
[2021-04-03 19:27] VITALS: BP 126/70
[2021-04-03] MEDS: ATORVASTATIN 40 MG TABLET PO SCH (21:22)
[2021-04-03] MEDS: AMITRIPTYLINE 25 MG TABLET PO SCH (21:23)
[2021-04-03] MEDS: INSULIN GLARGINE 100 UNITS/ML 10 ML VIAL SQ SCH (21:26)
[2021-04-03 23:19] VITALS: BP 142/83
[2021-04-03 23:42] LABS: INR 1.07 (0.85-1.15); PROTHROMBIN TIME 11.6 SEC (9.6-11.6)
[2021-04-04] MEDS: LEVOTHYROXINE 50 MCG TABLET PO SCH ×2 (01:02→06:49)
[2021-04-04 03:08] VITALS: BP 131/74
[2021-04-04 05:23] LABS: BASOPHILS % (AUTO) 0.1 % (0.0-5.0); EOSINOPHILS % (AUTO) 0.2 % (0.0-8.0); HEMATOCRIT 35.2 % (42-54); LYMPHOCYTES % (AUTO) 6.3 % (21.0-51.0); MEAN CORPUSCULAR HEMOGLOBIN 28.5 pg (27.0-33.0); MEAN CORPUSCULAR HGB CONC 32.4 g/dL (32.0-36.0); MONOCYTES % (AUTO) 3.3 % (3.0-13.0); NEUTROPHILS % (AUTO) 88.6 % (40.0-77.0); PLATELET COUNT (AUTO) 70 K/uL (130-400); RED CELL DISTRIBUTION WIDTH 15.8 % (11.0-15.5)
[2021-04-04 05:45] LABS: ALBUMIN 1.8 g/dL (3.5-5.0); BILIRUBIN,TOTAL 0.6 mg/dL (0.2-1.0); CREATININE 0.7 mg/dL (0.5-1.5); CRP QUANTITATIVE 24.3 mg/L (0.00-9.0); POTASSIUM 4.6 mmol/L (3.5-5.1); TOTAL PROTEIN, SERUM 5.8 g/dL (6.0-8.3)
[2021-04-04] MEDS: INSULIN HUMULIN R 100 UNIT/ML 3ML SQ SCH ×4 (06:49→22:13)
[2021-04-04 07:48] VITALS: BP 117/82
[2021-04-04] MEDS: 0.9% NACL 250ML 250 ML IV SCH ×4 (09:20→21:43)
[2021-04-04] MEDS: BARICITINIB (EUA) 2 MG TABLET PO SCH (09:20)
[2021-04-04] MEDS: PANTOPRAZOLE 40 MG TAB DR PO SCH (09:21)
[2021-04-04] MEDS: ASCORBIC ACID 500 MG TAB PO SCH (09:21)
[2021-04-04] MEDS: ZINC SULFATE 220 CAPSULE PO SCH (09:21)
[2021-04-04] MEDS: CLOPIDOGREL 75MG TAB PO SCH (09:21)
[2021-04-04] MEDS: SERTRALINE HCL 50 MG TABLET PO SCH (09:22)
[2021-04-04] MEDS: DEXAMETHASONE SOD PHOSPHATE 4 MG/ML 1ML VIAL IVP SCH ×2 (09:22→21:37)
[2021-04-04] MEDS: DOXYCYCLINE 100MG+NS 250ML IV SCH ×2 (09:23→21:37)
[2021-04-04] MEDS: ENOXAPARIN SODIUM 40 MG/0.4 ML SYRINGE SQ SCH ×2 (09:23→21:37)
[2021-04-04] MEDS: AMOX/CLAV 875/125MG TAB PO SCH ×2 (10:02→22:15)
[2021-04-04 11:37] VITALS: BP 119/74
[2021-04-04 15:31] VITALS: BP 140/91
[2021-04-04 20:50] VITALS: BP 124/76
[2021-04-04] MEDS: ATORVASTATIN 40 MG TABLET PO SCH (21:36)
[2021-04-04] MEDS: AMITRIPTYLINE 25 MG TABLET PO SCH (21:47)
[2021-04-04] MEDS: INSULIN GLARGINE 100 UNITS/ML 10 ML VIAL SQ SCH (22:14)
[2021-04-04 23:58] VITALS: BP 116/69
[2021-04-05] MEDS: LEVOTHYROXINE 50 MCG TABLET PO SCH ×2 (03:35→06:51)
[2021-04-05 03:58] VITALS: BP 109/60
[2021-04-05 04:20] LABS: BASOPHILS % (AUTO) 0.1 % (0.0-5.0); EOSINOPHILS % (AUTO) 0.3 % (0.0-8.0); HEMATOCRIT 35.8 % (42-54); LYMPHOCYTES % (AUTO) 5.4 % (21.0-51.0); MEAN CORPUSCULAR HEMOGLOBIN 28.4 pg (27.0-33.0); MEAN CORPUSCULAR HGB CONC 32.7 g/dL (32.0-36.0); MEAN CORPUSCULAR VOLUME 86.9 fL (79-99); MONOCYTES % (AUTO) 3.8 % (3.0-13.0); NEUTROPHILS % (AUTO) 88.9 % (40.0-77.0); PLATELET COUNT (AUTO) 61 K/uL (130-400); RED BLOOD CELL COUNT(AUTO) 4.12 MIL/uL (4.50-6.20); RED CELL DISTRIBUTION WIDTH 15.7 % (11.0-15.5); WHITE BLOOD COUNT (AUTO) 10.7 K/uL (4.8-10.8)
[2021-04-05 04:45] LABS: ALBUMIN 1.9 g/dL (3.5-5.0); BILIRUBIN,TOTAL 0.6 mg/dL (0.2-1.0); CREATININE 0.7 mg/dL (0.5-1.5); CRP QUANTITATIVE 10.9 mg/L (0.00-9.0); POTASSIUM 4.5 mmol/L (3.5-5.1); TOTAL PROTEIN, SERUM 5.9 g/dL (6.0-8.3)
[2021-04-05] MEDS: INSULIN HUMULIN R 100 UNIT/ML 3ML SQ SCH ×4 (06:40→20:28)
[2021-04-05 08:26] VITALS: BP 113/65
[2021-04-05] MEDS: DOXYCYCLINE 100MG+NS 250ML IV SCH ×2 (10:17→20:29)
[2021-04-05] MEDS: 0.9% NACL 250ML 250 ML IV SCH ×4 (10:17→20:29)
[2021-04-05] MEDS: PANTOPRAZOLE 40 MG TAB DR PO SCH (10:18)
[2021-04-05] MEDS: CLOPIDOGREL 75MG TAB PO SCH (10:18)
[2021-04-05] MEDS: BARICITINIB (EUA) 2 MG TABLET PO SCH (10:18)
[2021-04-05] MEDS: ZINC SULFATE 220 CAPSULE PO SCH (10:19)
[2021-04-05] MEDS: ASCORBIC ACID 500 MG TAB PO SCH (10:19)
[2021-04-05] MEDS: ENOXAPARIN SODIUM 40 MG/0.4 ML SYRINGE SQ SCH (10:19)
[2021-04-05] MEDS: SERTRALINE HCL 50 MG TABLET PO SCH (10:19)
[2021-04-05] MEDS: DEXAMETHASONE SOD PHOSPHATE 4 MG/ML 1ML VIAL IVP SCH ×2 (10:20→20:23)
[2021-04-05 12:10] VITALS: BP 119/60
[2021-04-05] MEDS: AMOX/CLAV 875/125MG TAB PO SCH ×2 (12:16→23:31)
[2021-04-05 16:28] VITALS: BP 106/67
[2021-04-05 19:00] VITALS: BP 103/58
[2021-04-05] MEDS: AMITRIPTYLINE 25 MG TABLET PO SCH (20:15)
[2021-04-05] MEDS: ATORVASTATIN 40 MG TABLET PO SCH (20:15)
[2021-04-05] MEDS: ENOXAPARIN SODIUM 60 MG/0.6 ML SQ SCH (20:22)
[2021-04-05] MEDS: INSULIN GLARGINE 100 UNITS/ML 10 ML VIAL SQ SCH (20:27)
[2021-04-05 23:22] VITALS: BP 131/74
[2021-04-06 04:28] VITALS: BP 135/66
[2021-04-06 04:30] LABS: BASOPHILS % (AUTO) 0.2 % (0.0-5.0); EOSINOPHILS % (AUTO) 0.4 % (0.0-8.0); HEMATOCRIT 36.6 % (42-54); LYMPHOCYTES % (AUTO) 5.3 % (21.0-51.0); MEAN CORPUSCULAR HEMOGLOBIN 28.6 pg (27.0-33.0); MEAN CORPUSCULAR HGB CONC 32.2 g/dL (32.0-36.0); MEAN CORPUSCULAR VOLUME 88.6 fL (79-99); MONOCYTES % (AUTO) 2.9 % (3.0-13.0); NEUTROPHILS % (AUTO) 89.8 % (40.0-77.0); PLATELET COUNT (AUTO) 59 K/uL (130-400); RED BLOOD CELL COUNT(AUTO) 4.13 MIL/uL (4.50-6.20); RED CELL DISTRIBUTION WIDTH 15.8 % (11.0-15.5); WHITE BLOOD COUNT (AUTO) 10.7 K/uL (4.8-10.8)
[2021-04-06 04:32] LABS: ALBUMIN 1.9 g/dL (3.5-5.0); BILIRUBIN,TOTAL 0.5 mg/dL (0.2-1.0); CREATININE 0.6 mg/dL (0.5-1.5); CRP QUANTITATIVE 41.8 mg/L (0.00-9.0); POTASSIUM 4.8 mmol/L (3.5-5.1)
[2021-04-06] MEDS: LEVOTHYROXINE 50 MCG TABLET PO SCH ×2 (06:00→06:27)
[2021-04-06] MEDS: INSULIN HUMULIN R 100 UNIT/ML 3ML SQ SCH ×4 (06:00→21:10)
[2021-04-06 07:35] VITALS: BP 119/79
[2021-04-06] MEDS: DEXAMETHASONE SOD PHOSPHATE 4 MG/ML 1ML VIAL IVP SCH ×2 (08:25→21:11)
[2021-04-06] MEDS: PANTOPRAZOLE 40 MG TAB DR PO SCH (08:26)
[2021-04-06] MEDS: ASCORBIC ACID 500 MG TAB PO SCH (08:26)
[2021-04-06] MEDS: ZINC SULFATE 220 CAPSULE PO SCH (08:26)
[2021-04-06] MEDS: CLOPIDOGREL 75MG TAB PO SCH (08:26)
[2021-04-06] MEDS: BARICITINIB (EUA) 2 MG TABLET PO SCH (08:26)
[2021-04-06] MEDS: ENOXAPARIN SODIUM 60 MG/0.6 ML SQ SCH (08:27)
[2021-04-06] MEDS: 0.9% NACL 250ML 250 ML IV SCH ×4 (08:28→21:11)
[2021-04-06] MEDS: SERTRALINE HCL 50 MG TABLET PO SCH (08:43)
[2021-04-06] MEDS: DOXYCYCLINE 100MG+NS 250ML IV SCH ×2 (10:07→21:11)
[2021-04-06] MEDS: AMOX/CLAV 875/125MG TAB PO SCH ×2 (10:46→21:12)
[2021-04-06 11:34] VITALS: BP 129/78
[2021-04-06 15:22] VITALS: BP 117/87
[2021-04-06 19:35] VITALS: BP 119/69
[2021-04-06] MEDS: ATORVASTATIN 40 MG TABLET PO SCH (19:55)
[2021-04-06] MEDS: AMITRIPTYLINE 25 MG TABLET PO SCH (19:55)
[2021-04-06] MEDS: INSULIN GLARGINE 100 UNITS/ML 10 ML VIAL SQ SCH (21:08)
[2021-04-06] MEDS: ENOXAPARIN SODIUM 40 MG/0.4 ML SYRINGE SQ SCH (21:30)
[2021-04-06 23:26] VITALS: BP 108/68
[2021-04-07 03:23] LABS: BASOPHILS % (AUTO) 0.1 % (0.0-5.0); EOSINOPHILS % (AUTO) 0.3 % (0.0-8.0); HEMATOCRIT 33.4 % (42-54); LYMPHOCYTES % (AUTO) 5.9 % (21.0-51.0); MEAN CORPUSCULAR HEMOGLOBIN 29.4 pg (27.0-33.0); MEAN CORPUSCULAR HGB CONC 33.8 g/dL (32.0-36.0); MONOCYTES % (AUTO) 2.7 % (3.0-13.0); NEUTROPHILS % (AUTO) 89.2 % (40.0-77.0); PLATELET COUNT (AUTO) 54 K/uL (130-400); RED BLOOD CELL COUNT(AUTO) 3.84 MIL/uL (4.50-6.20); WHITE BLOOD COUNT (AUTO) 11.1 K/uL (4.8-10.8)
[2021-04-07 03:31] VITALS: BP 98/63
[2021-04-07 03:33] LABS: ALBUMIN 1.8 g/dL (3.5-5.0); BILIRUBIN,TOTAL 0.5 mg/dL (0.2-1.0); CREATININE 0.6 mg/dL (0.5-1.5); CRP QUANTITATIVE 37.4 mg/L (0.00-9.0); POTASSIUM 4.4 mmol/L (3.5-5.1); TOTAL PROTEIN, SERUM 5.6 g/dL (6.0-8.3)
[2021-04-07] MEDS: LEVOTHYROXINE 50 MCG TABLET PO SCH ×2 (05:36→05:58)
[2021-04-07] MEDS: INSULIN HUMULIN R 100 UNIT/ML 3ML SQ SCH ×4 (06:20→20:59)
[2021-04-07 08:56] VITALS: BP 125/81
[2021-04-07] MEDS: 0.9% NACL 250ML 250 ML IV SCH ×4 (09:00→21:01)
[2021-04-07] MEDS: ENOXAPARIN SODIUM 40 MG/0.4 ML SYRINGE SQ SCH (09:00)
[2021-04-07] MEDS: PANTOPRAZOLE 40 MG TAB DR PO SCH (09:12)
[2021-04-07] MEDS: DEXAMETHASONE SOD PHOSPHATE 4 MG/ML 1ML VIAL IVP SCH (09:12)
[2021-04-07] MEDS: BARICITINIB (EUA) 2 MG TABLET PO SCH (09:12)
[2021-04-07] MEDS: AMOX/CLAV 875/125MG TAB PO SCH ×2 (09:12→21:01)
[2021-04-07] MEDS: ASCORBIC ACID 500 MG TAB PO SCH (09:12)
[2021-04-07] MEDS: ZINC SULFATE 220 CAPSULE PO SCH (09:13)
[2021-04-07] MEDS: SERTRALINE HCL 50 MG TABLET PO SCH (09:13)
[2021-04-07] MEDS: DOXYCYCLINE 100MG+NS 250ML IV SCH ×2 (09:21→21:00)
[2021-04-07] MEDS: METOPROLOL TARTRATE 25 MG TAB PO SCH ×2 (09:22→21:02)
[2021-04-07 12:21] VITALS: BP 105/73
[2021-04-07 16:34] VITALS: BP 122/78
[2021-04-07] MEDS: DRONABINOL 2.5 MG CAP PO SCH ×2 (16:41→21:01)
[2021-04-07] MEDS: INSULIN GLARGINE 100 UNITS/ML 10 ML VIAL SQ SCH (21:00)
[2021-04-07] MEDS: AMITRIPTYLINE 25 MG TABLET PO SCH (21:01)
[2021-04-07 21:02] VITALS: BP 106/71
[2021-04-07 21:05] VITALS: BP 106/71
[2021-04-08] VITALS (8 sets, daily range): BP systolic 94–121; BP diastolic 61–75
[2021-04-08 05:30] LABS: BASOPHILS % (AUTO) 0.2 % (0.0-5.0); EOSINOPHILS % (AUTO) 2.5 % (0.0-8.0); LYMPHOCYTES % (AUTO) 10.3 % (21.0-51.0); MEAN CORPUSCULAR HEMOGLOBIN 28.9 pg (27.0-33.0); MEAN CORPUSCULAR VOLUME 90.2 fL (79-99); MONOCYTES % (AUTO) 3.3 % (3.0-13.0); PLATELET COUNT (AUTO) 46 K/uL (130-400); RED BLOOD CELL COUNT(AUTO) 3.88 MIL/uL (4.50-6.20); RED CELL DISTRIBUTION WIDTH 16.2 % (11.0-15.5)
[2021-04-08] MEDS: INSULIN HUMULIN R 100 UNIT/ML 3ML SQ SCH ×4 (05:53→20:12)
[2021-04-08] MEDS: LEVOTHYROXINE 50 MCG TABLET PO SCH (06:05)
[2021-04-08 06:15] LABS: ALBUMIN 1.8 g/dL (3.5-5.0); BILIRUBIN,TOTAL 0.4 mg/dL (0.2-1.0); CREATININE 0.6 mg/dL (0.5-1.5); CRP QUANTITATIVE 31.5 mg/L (0.00-9.0); POTASSIUM 4.4 mmol/L (3.5-5.1); TOTAL PROTEIN, SERUM 5.7 g/dL (6.0-8.3)
[2021-04-08] MEDS: 0.9% NACL 250ML 250 ML IV SCH ×3 (09:00→20:12)
[2021-04-08] MEDS: ASCORBIC ACID 500 MG TAB PO SCH (09:48)
[2021-04-08] MEDS: ZINC SULFATE 220 CAPSULE PO SCH (09:48)
[2021-04-08] MEDS: SERTRALINE HCL 50 MG TABLET PO SCH (09:49)
[2021-04-08] MEDS: AMOX/CLAV 875/125MG TAB PO SCH ×2 (09:49→20:09)
[2021-04-08] MEDS: DOXYCYCLINE 100MG+NS 250ML IV SCH ×2 (09:50→20:12)
[2021-04-08] MEDS: METOPROLOL TARTRATE 25 MG TAB PO SCH ×2 (09:50→20:10)
[2021-04-08] MEDS: PANTOPRAZOLE 40 MG TAB DR PO SCH (09:50)
[2021-04-08] MEDS: BARICITINIB (EUA) 2 MG TABLET PO SCH (09:50)
[2021-04-08] MEDS: DRONABINOL 2.5 MG CAP PO SCH ×2 (09:50→20:10)
[2021-04-08] MEDS: FONDAPARINUX SODIUM 7.5 MG/0.6 ML SQ SCH (09:51)
[2021-04-08] MEDS: DEXAMETHASONE SOD PHOSPHATE 4 MG/ML 1ML VIAL IVP SCH (09:52)
[2021-04-08] MEDS: AMITRIPTYLINE 25 MG TABLET PO SCH (20:10)
[2021-04-08] MEDS: INSULIN GLARGINE 100 UNITS/ML 10 ML VIAL SQ SCH (20:11)
[2021-04-09 03:34] VITALS: BP 93/46
[2021-04-09 04:41] LABS: BASOPHILS % (AUTO) 0.1 % (0.0-5.0); EOSINOPHILS % (AUTO) 1.8 % (0.0-8.0); HEMATOCRIT 33.4 % (42-54); LYMPHOCYTES % (AUTO) 10.8 % (21.0-51.0); MEAN CORPUSCULAR HEMOGLOBIN 29.2 pg (27.0-33.0); MEAN CORPUSCULAR HGB CONC 33.2 g/dL (32.0-36.0); MEAN CORPUSCULAR VOLUME 87.9 fL (79-99); MONOCYTES % (AUTO) 3.3 % (3.0-13.0); NEUTROPHILS % (AUTO) 82.2 % (40.0-77.0); PLATELET COUNT (AUTO) 47 K/uL (130-400); RED CELL DISTRIBUTION WIDTH 16.4 % (11.0-15.5); WHITE BLOOD COUNT (AUTO) 9.5 K/uL (4.8-10.8)
[2021-04-09 04:53] LABS: ALBUMIN 1.7 g/dL (3.5-5.0); BILIRUBIN,TOTAL 0.5 mg/dL (0.2-1.0); CREATININE 0.6 mg/dL (0.5-1.5); CRP QUANTITATIVE 121.7 mg/L (0.00-9.0); POTASSIUM 4.1 mmol/L (3.5-5.1); TOTAL PROTEIN, SERUM 5.7 g/dL (6.0-8.3)
[2021-04-09] MEDS: INSULIN HUMULIN R 100 UNIT/ML 3ML SQ SCH ×4 (05:05→19:51)
[2021-04-09] MEDS: LEVOTHYROXINE 50 MCG TABLET PO SCH (06:15)
[2021-04-09 08:14] VITALS: BP 100/70
[2021-04-09] MEDS: ASCORBIC ACID 500 MG TAB PO SCH (08:17)
[2021-04-09] MEDS: PANTOPRAZOLE 40 MG TAB DR PO SCH (08:17)
[2021-04-09] MEDS: DRONABINOL 2.5 MG CAP PO SCH ×2 (08:17→19:49)
[2021-04-09] MEDS: ZINC SULFATE 220 CAPSULE PO SCH (08:17)
[2021-04-09] MEDS: DEXAMETHASONE SOD PHOSPHATE 4 MG/ML 1ML VIAL IVP SCH (08:17)
[2021-04-09] MEDS: SERTRALINE HCL 50 MG TABLET PO SCH (08:17)
[2021-04-09] MEDS: METOPROLOL TARTRATE 25 MG TAB PO SCH ×2 (08:17→19:49)
[2021-04-09] MEDS: BARICITINIB (EUA) 2 MG TABLET PO SCH (08:38)
[2021-04-09] MEDS: AMOX/CLAV 875/125MG TAB PO SCH ×2 (08:38→21:28)
[2021-04-09] MEDS: FONDAPARINUX SODIUM 7.5 MG/0.6 ML SQ SCH (08:39)
[2021-04-09] MEDS: 0.9% NACL 250ML 250 ML IV SCH ×2 (09:01→21:28)
[2021-04-09] MEDS: DOXYCYCLINE 100MG+NS 250ML IV SCH ×2 (09:01→21:28)
[2021-04-09 11:59] VITALS: BP 92/64
[2021-04-09 16:00] VITALS: BP 91/53
[2021-04-09] MEDS: AMITRIPTYLINE 25 MG TABLET PO SCH (19:50)
[2021-04-09] MEDS: INSULIN GLARGINE 100 UNITS/ML 10 ML VIAL SQ SCH (19:52)
[2021-04-09 20:00] VITALS: BP 93/57
[2021-04-09 23:57] VITALS: BP 110/67
[2021-04-10 03:21] VITALS: BP 103/58
[2021-04-10] MEDS ORDERED: ALTEPLASE 2MG VIAL 2 MG/VIAL VIAL IVCATH ONE (05:30)
[2021-04-10] MEDS: LEVOTHYROXINE 50 MCG TABLET PO SCH (05:46)
[2021-04-10] MEDS: INSULIN HUMULIN R 100 UNIT/ML 3ML SQ SCH ×4 (06:19→20:29)
[2021-04-10 06:24] LABS: BASOPHILS % (AUTO) 0.3 % (0.0-5.0); EOSINOPHILS % (AUTO) 1.8 % (0.0-8.0); HEMATOCRIT 37.8 % (42-54); LYMPHOCYTES % (AUTO) 13.3 % (21.0-51.0); MEAN CORPUSCULAR HEMOGLOBIN 29.2 pg (27.0-33.0); MEAN CORPUSCULAR HGB CONC 31.7 g/dL (32.0-36.0); MONOCYTES % (AUTO) 3.6 % (3.0-13.0); NEUTROPHILS % (AUTO) 78.7 % (40.0-77.0); PLATELET COUNT (AUTO) 62 K/uL (130-400); RED BLOOD CELL COUNT(AUTO) 4.11 MIL/uL (4.50-6.20); RED CELL DISTRIBUTION WIDTH 16.9 % (11.0-15.5); WHITE BLOOD COUNT (AUTO) 10.7 K/uL (4.8-10.8)
[2021-04-10 08:00] VITALS: BP 88/66
[2021-04-10] MEDS: ASCORBIC ACID 500 MG TAB PO SCH (09:14)
[2021-04-10] MEDS: AMOX/CLAV 875/125MG TAB PO SCH ×2 (09:14→19:38)
[2021-04-10] MEDS: DRONABINOL 2.5 MG CAP PO SCH ×2 (09:14→19:38)
[2021-04-10] MEDS: ZINC SULFATE 220 CAPSULE PO SCH (09:14)
[2021-04-10] MEDS: FONDAPARINUX SODIUM 7.5 MG/0.6 ML SQ SCH (09:14)
[2021-04-10] MEDS: PANTOPRAZOLE 40 MG TAB DR PO SCH (09:14)
[2021-04-10] MEDS: BARICITINIB (EUA) 2 MG TABLET PO SCH (09:14)
[2021-04-10] MEDS: METOPROLOL TARTRATE 25 MG TAB PO SCH ×2 (09:15→19:39)
[2021-04-10] MEDS: DOXYCYCLINE 100MG+NS 250ML IV SCH ×2 (09:15→21:00)
[2021-04-10] MEDS: DEXAMETHASONE SOD PHOSPHATE 4 MG/ML 1ML VIAL IVP SCH (09:15)
[2021-04-10] MEDS: SERTRALINE HCL 50 MG TABLET PO SCH (09:15)
[2021-04-10] MEDS: 0.9% NACL 250ML 250 ML IV SCH ×2 (09:15→21:00)
[2021-04-10 12:00] VITALS: BP 108/77
[2021-04-10 16:00] VITALS: BP 107/70
[2021-04-10] MEDS: AMITRIPTYLINE 25 MG TABLET PO SCH (19:38)
[2021-04-10 19:39] VITALS: BP 121/67
[2021-04-10] MEDS: INSULIN GLARGINE 100 UNITS/ML 10 ML VIAL SQ SCH (20:28)
[2021-04-10 23:50] VITALS: BP 112/62
[2021-04-11 03:50] VITALS: BP 103/68
[2021-04-11 04:40] LABS: BASOPHILS % (AUTO) 0.2 % (0.0-5.0); EOSINOPHILS % (AUTO) 12.3 % (0.0-8.0); HEMATOCRIT 32.8 % (42-54); LYMPHOCYTES % (AUTO) 11.4 % (21.0-51.0); MEAN CORPUSCULAR HEMOGLOBIN 28.7 pg (27.0-33.0); MEAN CORPUSCULAR HGB CONC 31.7 g/dL (32.0-36.0); MEAN CORPUSCULAR VOLUME 90.4 fL (79-99); MONOCYTES % (AUTO) 4.5 % (3.0-13.0); NEUTROPHILS % (AUTO) 67.2 % (40.0-77.0); PLATELET COUNT (AUTO) 68 K/uL (130-400); RED BLOOD CELL COUNT(AUTO) 3.63 MIL/uL (4.50-6.20); RED CELL DISTRIBUTION WIDTH 16.5 % (11.0-15.5); WHITE BLOOD COUNT (AUTO) 8.3 K/uL (4.8-10.8)
[2021-04-11 04:48] LABS: CREATININE 0.6 mg/dL (0.5-1.5); CRP QUANTITATIVE 100.5 mg/L (0.00-9.0); MAGNESIUM 1.8 mg/dL (1.80-2.40); POTASSIUM 4.5 mmol/L (3.5-5.1)
[2021-04-11] MEDS: LEVOTHYROXINE 50 MCG TABLET PO SCH (06:07)
[2021-04-11] MEDS: INSULIN HUMULIN R 100 UNIT/ML 3ML SQ SCH ×6 (06:30→21:20)
[2021-04-11 08:52] VITALS: BP 108/72
[2021-04-11] MEDS: ASCORBIC ACID 500 MG TAB PO SCH (09:09)
[2021-04-11] MEDS: PANTOPRAZOLE 40 MG TAB DR PO SCH (09:09)
[2021-04-11] MEDS: AMOX/CLAV 875/125MG TAB PO SCH ×2 (09:09→21:13)
[2021-04-11] MEDS: DRONABINOL 2.5 MG CAP PO SCH ×2 (09:09→21:14)
[2021-04-11] MEDS: METOPROLOL TARTRATE 25 MG TAB PO SCH ×2 (09:09→21:14)
[2021-04-11] MEDS: ZINC SULFATE 220 CAPSULE PO SCH (09:09)
[2021-04-11] MEDS: DEXAMETHASONE SOD PHOSPHATE 4 MG/ML 1ML VIAL IVP SCH ×2 (09:10→21:13)
[2021-04-11] MEDS: SERTRALINE HCL 50 MG TABLET PO SCH (09:10)
[2021-04-11] MEDS: FONDAPARINUX SODIUM 7.5 MG/0.6 ML SQ SCH (09:20)
[2021-04-11] MEDS: 0.9% NACL 250ML 250 ML IV SCH (10:00)
[2021-04-11] MEDS ORDERED: FLUCONAZOLE 100 MG TAB PO SCH (11:30)
[2021-04-11 12:19] VITALS: BP 99/57
[2021-04-11] MEDS: CLOTRIMAZOLE 10 MG TROCHE MM SCH ×3 (13:39→23:50)
[2021-04-11 17:20] VITALS: BP 96/67
[2021-04-11 19:54] VITALS: BP 110/74
[2021-04-11] MEDS: AMITRIPTYLINE 25 MG TABLET PO SCH (21:13)
[2021-04-11] MEDS: INSULIN GLARGINE 100 UNITS/ML 10 ML VIAL SQ SCH (21:16)
[2021-04-11 23:46] VITALS: BP 110/63
[2021-04-12 04:09] VITALS: BP 94/56
[2021-04-12 04:47] LABS: BASOPHILS % (AUTO) 0.3 % (0.0-5.0); HEMATOCRIT 32.6 % (42-54); LYMPHOCYTES % (AUTO) 8.4 % (21.0-51.0); MEAN CORPUSCULAR HEMOGLOBIN 28.8 pg (27.0-33.0); MEAN CORPUSCULAR HGB CONC 31.9 g/dL (32.0-36.0); MEAN CORPUSCULAR VOLUME 90.3 fL (79-99); NEUTROPHILS % (AUTO) 81.9 % (40.0-77.0); PLATELET COUNT (AUTO) 79 K/uL (130-400); RED BLOOD CELL COUNT(AUTO) 3.61 MIL/uL (4.50-6.20); RED CELL DISTRIBUTION WIDTH 16.5 % (11.0-15.5); WHITE BLOOD COUNT (AUTO) 6.1 K/uL (4.8-10.8)
[2021-04-12 04:59] LABS: ALBUMIN 1.6 g/dL (3.5-5.0); BILIRUBIN,TOTAL 0.4 mg/dL (0.2-1.0); CREATININE 0.6 mg/dL (0.5-1.5); MAGNESIUM 1.9 mg/dL (1.80-2.40); POTASSIUM 4.9 mmol/L (3.5-5.1); TOTAL PROTEIN, SERUM 5.8 g/dL (6.0-8.3)
[2021-04-12] MEDS: CLOTRIMAZOLE 10 MG TROCHE MM SCH ×3 (06:13→17:17)
[2021-04-12] MEDS: LEVOTHYROXINE 50 MCG TABLET PO SCH (06:14)
[2021-04-12] MEDS: INSULIN HUMULIN R 100 UNIT/ML 3ML SQ SCH ×7 (06:14→22:28)
[2021-04-12 08:12] VITALS: BP 107/76
[2021-04-12] MEDS: FONDAPARINUX SODIUM 7.5 MG/0.6 ML SQ SCH (08:30)
[2021-04-12] MEDS: DEXAMETHASONE SOD PHOSPHATE 4 MG/ML 1ML VIAL IVP SCH ×2 (08:31→20:52)
[2021-04-12] MEDS: ZINC SULFATE 220 CAPSULE PO SCH (08:31)
[2021-04-12] MEDS: PANTOPRAZOLE 40 MG TAB DR PO SCH (08:31)
[2021-04-12] MEDS: ASCORBIC ACID 500 MG TAB PO SCH (08:32)
[2021-04-12] MEDS: AMOX/CLAV 875/125MG TAB PO SCH ×2 (08:32→20:51)
[2021-04-12] MEDS: METOPROLOL TARTRATE 25 MG TAB PO SCH ×2 (08:32→20:51)
[2021-04-12] MEDS: SERTRALINE HCL 50 MG TABLET PO SCH (08:32)
[2021-04-12] MEDS: DRONABINOL 2.5 MG CAP PO SCH (08:32)
[2021-04-12 12:22] VITALS: BP 104/73
[2021-04-12 16:34] VITALS: BP 105/63
[2021-04-12 20:05] VITALS: BP 108/72
[2021-04-12] MEDS: INSULIN GLARGINE 100 UNITS/ML 10 ML VIAL SQ SCH (20:51)
[2021-04-12] MEDS: AMITRIPTYLINE 25 MG TABLET PO SCH (20:51)
== END 2021-04-12 23:13 | DRG 177 ==
LOC: EDH 14:05 → EDHIP 17:01 → 2BH 03-21 23:36 → 2AH 03-24 18:04
PROVIDERS: ADMIT Internal Medicine; ATTEND Internal Medicine
PROC: XW033E5 Introduction of Remdesivir Anti-infective into Peripheral Vein, Percutaneous Approach, New Technology Group 5 (ICD-10-PCS; 2021-03-19)
PROC: XW0DXM6 Introduction of Baricitinib into Mouth and Pharynx, External Approach, New Technology Group 6 (ICD-10-PCS; 2021-03-20)
PROC: 5A09357 Assistance with Respiratory Ventilation, Less than 24 Consecutive Hours, Continuous Positive Airway Pressure (ICD-10-PCS; 2021-03-20)
PROC: 5A09357 Assistance with Respiratory Ventilation, Less than 24 Consecutive Hours, Continuous Positive Airway Pressure (ICD-10-PCS; 2021-03-20)
PROC: 5A09357 Assistance with Respiratory Ventilation, Less than 24 Consecutive Hours, Continuous Positive Airway Pressure (ICD-10-PCS; 2021-03-22)
PROC: 5A0935A Assistance with Respiratory Ventilation, Less than 24 Consecutive Hours, High Flow/Velocity Cannula (ICD-10-PCS; 2021-03-23)
PROC: 5A0935A Assistance with Respiratory Ventilation, Less than 24 Consecutive Hours, High Flow/Velocity Cannula (ICD-10-PCS; 2021-03-24)
PROC: 5A0935A Assistance with Respiratory Ventilation, Less than 24 Consecutive Hours, High Flow/Velocity Cannula (ICD-10-PCS; 2021-03-25)
PROC: 5A0935A Assistance with Respiratory Ventilation, Less than 24 Consecutive Hours, High Flow/Velocity Cannula (ICD-10-PCS; 2021-03-26)
PROC: 5A0935A Assistance with Respiratory Ventilation, Less than 24 Consecutive Hours, High Flow/Velocity Cannula (ICD-10-PCS; 2021-03-27)
PROC: 5A0935A Assistance with Respiratory Ventilation, Less than 24 Consecutive Hours, High Flow/Velocity Cannula (ICD-10-PCS; 2021-03-28)
PROC: 5A0935A Assistance with Respiratory Ventilation, Less than 24 Consecutive Hours, High Flow/Velocity Cannula (ICD-10-PCS; 2021-03-29)
PROC: 5A0935A Assistance with Respiratory Ventilation, Less than 24 Consecutive Hours, High Flow/Velocity Cannula (ICD-10-PCS; 2021-03-30)
PROC: 5A0935A Assistance with Respiratory Ventilation, Less than 24 Consecutive Hours, High Flow/Velocity Cannula (ICD-10-PCS; 2021-03-31)
PROC: 5A0935A Assistance with Respiratory Ventilation, Less than 24 Consecutive Hours, High Flow/Velocity Cannula (ICD-10-PCS; 2021-04-01)
PROC: 5A0935A Assistance with Respiratory Ventilation, Less than 24 Consecutive Hours, High Flow/Velocity Cannula (ICD-10-PCS; 2021-04-02)
PROC: 5A0935A Assistance with Respiratory Ventilation, Less than 24 Consecutive Hours, High Flow/Velocity Cannula (ICD-10-PCS; 2021-04-03)
PROC: 02HV33Z Insertion of Infusion Device into Superior Vena Cava, Percutaneous Approach (ICD-10-PCS; principal; 2021-04-04)
PROC: 5A0935A Assistance with Respiratory Ventilation, Less than 24 Consecutive Hours, High Flow/Velocity Cannula (ICD-10-PCS; 2021-04-04)
PROC: 5A0935A Assistance with Respiratory Ventilation, Less than 24 Consecutive Hours, High Flow/Velocity Cannula (ICD-10-PCS; 2021-04-05)
PROC: 5A0935A Assistance with Respiratory Ventilation, Less than 24 Consecutive Hours, High Flow/Velocity Cannula (ICD-10-PCS; 2021-04-06)
DX: U07.1 COVID-19 (principal); J12.82 Pneumonia due to coronavirus disease 2019; I21.4 Non-ST elevation (NSTEMI) myocardial infarction; J80 Acute respiratory distress syndrome; J15.211 Pneumonia due to Methicillin susceptible Staphylococcus aureus; E44.0 Moderate protein-calorie malnutrition; E87.2 Acidosis; M62.82 Rhabdomyolysis; B37.0 Candidal stomatitis; E87.1 Hypo-osmolality and hyponatremia; I82.621 Acute embolism and thrombosis of deep veins of right upper extremity; D68.59 Other primary thrombophilia; E66.9 Obesity, unspecified; E87.8 Other disorders of electrolyte and fluid balance, not elsewhere classified; R53.81 Other malaise; M19.90 Unspecified osteoarthritis, unspecified site; K21.9 Gastro-esophageal reflux disease without esophagitis; F41.9 Anxiety disorder, unspecified; F32.9 Major depressive disorder, single episode, unspecified; E78.5 Hyperlipidemia, unspecified; E11.51 Type 2 diabetes mellitus with diabetic peripheral angiopathy without gangrene; R74.02 Elevation of levels of lactic acid dehydrogenase [LDH]; E03.9 Hypothyroidism, unspecified; I25.10 Atherosclerotic heart disease of native coronary artery without angina pectoris; D64.9 Anemia, unspecified; D75.82 Heparin induced thrombocytopenia (HIT); E78.00 Pure hypercholesterolemia, unspecified; Z68.23 Body mass index [BMI] 23.0-23.9, adult; Z89.612 Acquired absence of left leg above knee; Z89.512 Acquired absence of left leg below knee; Z83.3 Family history of diabetes mellitus; Z83.6 Family history of other diseases of the respiratory system
CPT/HCPCS: 36415; 36600; 71045; 71275; 76705; 80048; 80053; 80076; 80202; 81001; 82550; 82728; 82803; 82948; 83036; 83605; 83615; 83735; 83874; 83880; 84145; 84484; 85025; 85378; 85610; 86022; 86140; 87040; 87071; 87077; 87088; 87186; 87205; 87635; 87804; 93005; 93970; 93971; 94660; 97039; 99291; C1751; C1894; C9113; C9803; G0378; J0692; J1100; J1450; J1650; J1652; J1815; J2704; J2997; J3370; J3490; J7050; J7120; Q0167; Q9967

== ENCOUNTER 2021-05-06 13:17 | Emergency (ER) | payer OTHER ==
[~2021-05-06] VITALS: Ht 165.1 cm; Wt 65.8 kg
[~2021-05-06 13:17] MED LIST changes: +AMIT50TA3 PO; -ASPI-1197 PO; +ATOR40TA71 PO; -CILO50TA PO; -CLON0.5T4 PO; +CLOP75TA32 PO; -FURO20TA4 PO; -ISOS60TA77 PO; +LEVO50CA4 PO; -METF-444 PO; -METO25TA6 PO; -NITR0.4T SL; +PREG100C55 PO; +SERT-438 PO; -TRAM50TA4 PO; -VALS40TA11 PO; +ZINC220C6 PO
[2021-05-06 14:10] LABS: BASOPHILS % (AUTO) 0.6 % (0.0-5.0); EOSINOPHILS % (AUTO) 0.3 % (0.0-8.0); HEMATOCRIT 34.3 % (42-54); LYMPHOCYTES % (AUTO) 22.1 % (21.0-51.0); MEAN CORPUSCULAR HGB CONC 30.9 g/dL (32.0-36.0); MEAN CORPUSCULAR VOLUME 90.7 fL (79-99); MONOCYTES % (AUTO) 9.7 % (3.0-13.0); NEUTROPHILS % (AUTO) 65.8 % (40.0-77.0); PLATELET COUNT (AUTO) 292 K/uL (130-400); RED BLOOD CELL COUNT(AUTO) 3.78 MIL/uL (4.50-6.20); RED CELL DISTRIBUTION WIDTH 16.8 % (11.0-15.5); WHITE BLOOD COUNT (AUTO) 13.2 K/uL (4.8-10.8)
[2021-05-06 14:18] LABS: CREATININE 0.8 mg/dL (0.5-1.5); POTASSIUM 4.2 mmol/L (3.5-5.1)
[2021-05-06 14:23] LABS: ALBUMIN 1.9 g/dL (3.5-5.0); BILIRUBIN,TOTAL 0.3 mg/dL (0.2-1.0); TOTAL PROTEIN, SERUM 7.8 g/dL (6.0-8.3)
[2021-05-06] MEDS ORDERED: 0.9% NACL 500ML IV.SOLN 500 ML IV ONE (17:30)
[2021-05-06 17:45] LABS: APPEARANCE,URINE Clear (CLEAR); BILIRUBIN,URINE Negative (NEGATIVE); COLOR,URINE Yellow (YELLOW); GLUCOSE, URINE (UA) Negative (NEGATIVE); KETONES,URINE Negative (NEGATIVE); LEUKOCYTE ESTERASE ,URINE Trace (NEGATIVE); NITRATE,URINE Negative (NEGATIVE); OCCULT BLOOD,URINE Negative (NEGATIVE); PH,URINE 5.5 (5.0-8.0); PROTEIN,URINE Trace mg/dL (NEGATIVE)
[2021-05-06] MEDS ORDERED: MORPHINE 2 MG SYG IVP ONE (18:00)
[2021-05-06 18:07] LABS: BACTERIA,URINE Few /HPF (None Seen); MUCUS,URINE Few LPF (None Seen); RBC,URINE 0-1 /HPF (0-1)
[2021-05-06 18:08] LABS: SQUAMOUS EPITHELIAL CELL,UR Rare /HPF (0-2)
[2021-05-06] MEDS ORDERED: LEVOFLOXACIN 500 MG/D5W 100 ML 100 ML IV SCH (19:30)
[2021-05-06] MEDS ORDERED: SOLU-MEDROL 40MG VIAL IVP ONE (19:30)
[2021-05-06] MEDS ORDERED: IPRATROPIUM/ALBUTEROL SULFATE 3 ML SOLUTION IH ONE (19:30)
[2021-05-06] MEDS ORDERED: LIDOP TD (19:56)
[2021-05-06] MEDS ORDERED: LEVO500T90 PO (19:56)
[2021-05-06] MEDS ORDERED: SIME80TA12 PO (19:58)
[2021-05-06 20:17] VITALS: BP 106/62
[2021-05-06] MEDS ORDERED: LIDOCAINE 5% TOPICAL PATCH TP ONE (20:55)
== END 2021-05-06 20:57 | disposition home or self-care (01) ==
LOC: EDH 13:17
DX: J44.0 Chronic obstructive pulmonary disease with (acute) lower respiratory infection (principal); R10.11 Right upper quadrant pain; E11.9 Type 2 diabetes mellitus without complications; E78.00 Pure hypercholesterolemia, unspecified; F41.9 Anxiety disorder, unspecified; F32.A Depression, unspecified; I11.9 Hypertensive heart disease without heart failure; I25.10 Atherosclerotic heart disease of native coronary artery without angina pectoris; Z79.899 Other long term (current) drug therapy; E86.0 Dehydration; Z87.442 Personal history of urinary calculi; Z95.1 Presence of aortocoronary bypass graft
CPT/HCPCS: 36415; 71045; 74176; 76705; 80053; 81001; 82150; 82550; 83690; 85025; 93005; 94640; 96361; 96365; 96375; 99285; J1956; J2920; J7040

== ENCOUNTER 2022-09-12 13:35 | Observation (INO) | payer OTHER ==
[~2022-09-12] VITALS: Ht 157.5 cm; Wt 65.8 kg
[~2022-09-12 13:35] MED LIST changes: +LEVO-70 PO; +LIDOP TD; +SIME80TA12 PO
[2022-09-12 14:04] LABS: BASOPHILS % (AUTO) 0.6 % (0.0-5.0); EOSINOPHILS % (AUTO) 2.7 % (0.0-8.0); LYMPHOCYTES % (AUTO) 27.4 % (21.0-51.0); MEAN CORPUSCULAR HEMOGLOBIN 29.7 pg (27.0-33.0); MONOCYTES % (AUTO) 9.1 % (3.0-13.0); NEUTROPHILS % (AUTO) 59.8 % (40.0-77.0); PLATELET COUNT (AUTO) 153 K/uL (130-400); RED BLOOD CELL COUNT(AUTO) 2.19 MIL/uL (4.50-6.20); RED CELL DISTRIBUTION WIDTH 14.8 % (11.0-15.5); WHITE BLOOD COUNT (AUTO) 8.1 K/uL (4.8-10.8)
[2022-09-12 14:16] LABS: CREATININE 1.2 mg/dL (0.5-1.5); POTASSIUM 3.9 mmol/L (3.5-5.1)
[2022-09-12 14:22] LABS: ALBUMIN 3.2 g/dL (3.5-5.0); TOTAL PROTEIN, SERUM 6.4 g/dL (6.0-8.3)
[2022-09-12 14:24] LABS: HEMATOCRIT 19.7 % (42-54)
[2022-09-12 15:04] LABS: APPEARANCE,URINE CLEAR (CLEAR); BILIRUBIN,URINE NEGATIVE (NEGATIVE); COLOR,URINE LIGHT-YELLOW (YELLOW); GLUCOSE, URINE (UA) NEGATIVE (NEGATIVE); KETONES,URINE NEGATIVE (NEGATIVE); LEUKOCYTE ESTERASE ,URINE NEGATIVE Leu/uL (NEGATIVE); NITRATE,URINE NEGATIVE (NEGATIVE); OCCULT BLOOD,URINE NEGATIVE (NEGATIVE); PROTEIN,URINE NEGATIVE (NEGATIVE); UROBILINOGEN,URINE 0.2 mg/dL (0.2-1.0)
[2022-09-12 15:06] LABS: MUCUS,URINE RARE LPF (None Seen); RBC,URINE 0-1 /HPF (0-1); WBC,URINE 0-1 /HPF (0-1)
[2022-09-12 15:09] LABS: INR 1.05 (0.85-1.15); PROTHROMBIN TIME 11.4 SEC (9.6-11.6)
[2022-09-12 15:10] LABS: PARTIAL THROMBOPLASTIN TIME 22.2 SEC (26.3-35.5)
[2022-09-12] MEDS ORDERED: IOHEXOL 350 MG/ML 100ML INFUS..BTL IV ONE (16:42)
[2022-09-12] MEDS ORDERED: ACETAMINOPHEN 325 MG TAB PO PRN (17:00)
[2022-09-12] MEDS ORDERED: ONDANSETRON 4MG INJ IVP PRN (17:00)
[2022-09-12] MEDS ORDERED: ACETAMINOPHEN 500 MG TABLET PO ONE (17:00)
[2022-09-12] MEDS ORDERED: EZET10TA48 PO (17:52)
[2022-09-12] MEDS ORDERED: AMIT25TA9 PO (17:52)
[2022-09-12] MEDS ORDERED: CLOP75TA32 PO (17:52)
[2022-09-12] MEDS ORDERED: GABA-529 PO (17:52)
[2022-09-12] MEDS ORDERED: ATOR40TA71 PO (17:52)
[2022-09-12] MEDS ORDERED: METF-444 PO (17:52)
[2022-09-12] MEDS ORDERED: SERT-438 PO (17:52)
[2022-09-12] MEDS ORDERED: LEVO25CA4 PO (17:52)
[2022-09-12] MEDS: PANTOPRAZOLE 40 MG TAB DR PO SCH (18:25)
[2022-09-12 23:09] VITALS: BP 117/57
[2022-09-13] VITALS (18 sets, daily range): BP systolic 99–135; BP diastolic 51–75
[2022-09-13] MEDS: MORPHINE 2 MG SYG IVP PRN ×3 (00:32→19:38)
[2022-09-13 08:58] LABS: BASOPHILS % (AUTO) 0.5 % (0.0-5.0); EOSINOPHILS % (AUTO) 3.8 % (0.0-8.0); HEMATOCRIT 25.5 % (42-54); LYMPHOCYTES % (AUTO) 29.3 % (21.0-51.0); MEAN CORPUSCULAR HEMOGLOBIN 28.6 pg (27.0-33.0); MEAN CORPUSCULAR VOLUME 92.4 fL (79-99); MONOCYTES % (AUTO) 8.2 % (3.0-13.0); NEUTROPHILS % (AUTO) 57.7 % (40.0-77.0); PLATELET COUNT (AUTO) 122 K/uL (130-400); RED BLOOD CELL COUNT(AUTO) 2.76 MIL/uL (4.50-6.20); RED CELL DISTRIBUTION WIDTH 15.2 % (11.0-15.5); WHITE BLOOD COUNT (AUTO) 5.6 K/uL (4.8-10.8)
[2022-09-13 09:09] LABS: HEMOGLOBIN A1C 6.6 % (4.0-6.0)
[2022-09-13 09:31] LABS: ALBUMIN 3.1 g/dL (3.5-5.0); CREATININE 1.1 mg/dL (0.5-1.5); MAGNESIUM 1.9 mg/dL (1.80-2.40); POTASSIUM 3.9 mmol/L (3.5-5.1); TOTAL PROTEIN, SERUM 6.3 g/dL (6.0-8.3)
[2022-09-13] MEDS ORDERED: 0.9%NACL 1000ML 1,000 ML IV ONE (12:00)
[2022-09-13] MEDS ORDERED: FENTANYL CITRATE PF 50 MCG/1 ML 2ML VIAL ONE (13:47)
[2022-09-13] MEDS ORDERED: PROPOFOL 10 MG/ML 20ML VIAL IV ONE (13:48)
[2022-09-13] MEDS: PANTOPRAZOLE 40 MG TAB DR PO SCH (17:00)
[2022-09-14 04:03] VITALS: BP 104/59
[2022-09-14] MEDS: MORPHINE 2 MG SYG IVP PRN ×3 (05:46→15:34)
[2022-09-14 06:08] LABS: HEMATOCRIT 26.2 % (42-54); MEAN CORPUSCULAR HGB CONC 31.3 g/dL (32.0-36.0); MEAN CORPUSCULAR VOLUME 92.6 fL (79-99); RED BLOOD CELL COUNT(AUTO) 2.83 MIL/uL (4.50-6.20); RED CELL DISTRIBUTION WIDTH 15.7 % (11.0-15.5); WHITE BLOOD COUNT (AUTO) 6.9 K/uL (4.8-10.8)
[2022-09-14 06:18] LABS: POTASSIUM 4.1 mmol/L (3.5-5.1)
[2022-09-14 08:10] VITALS: BP 97/56
[2022-09-14] MEDS ORDERED: PANTOPRAZOLE 40 MG TAB DR PO SCH (09:00)
[2022-09-14 12:24] VITALS: BP 106/57
== END 2022-09-14 17:15 | disposition home or self-care (01) ==
LOC: EDH 13:35 → INTOOBSV 16:37 → EDHIP 16:37 → 3DH 09-13 00:22
PROVIDERS: ADMIT Internal Medicine Infectious Disease; ATTEND Internal Medicine Infectious Disease
DX: I85.00 Esophageal varices without bleeding (principal); Z20.822 Contact with and (suspected) exposure to COVID-19; D64.9 Anemia, unspecified; K92.2 Gastrointestinal hemorrhage, unspecified; R07.89 Other chest pain; E11.51 Type 2 diabetes mellitus with diabetic peripheral angiopathy without gangrene; I10 Essential (primary) hypertension; I25.10 Atherosclerotic heart disease of native coronary artery without angina pectoris; E78.5 Hyperlipidemia, unspecified; F41.8 Other specified anxiety disorders; I73.9 Peripheral vascular disease, unspecified; K21.9 Gastro-esophageal reflux disease without esophagitis; E78.00 Pure hypercholesterolemia, unspecified; I24.9 Acute ischemic heart disease, unspecified; I25.2 Old myocardial infarction; E87.29 Other acidosis; Z87.11 Personal history of peptic ulcer disease; Z79.899 Other long term (current) drug therapy; Z89.612 Acquired absence of left leg above knee; Z95.1 Presence of aortocoronary bypass graft
CPT/HCPCS: 36430; 82550 ×3; 83874 ×3; 84484 ×4; 80053 ×2; 85025 ×2; 85610; 85730; 86850; 86900; 86901; 86923 ×2; 82270; 81001; 36415 ×3; 87635; 71045; 71275; 74177; 99291; 93005 ×3; 96374; 96376 ×2; 83036; 83735 ×2; 82948 ×8; 43244; 86677; 80048; 85027; P9016; Q9967; J3010; J7030 ×2; J2704; J2405; A4620; A4215; A4223; A4657; A7002; A4222; A4663; A4216; A4606; G0378 ×2

== ENCOUNTER → 2022-10-18 | Outpatient (CLI) | payer OTHER ==
[~2022-10-18] MED LIST changes: +AMIT25TA9 PO; -AMIT50TA3 PO; +EZET10TA48 PO; +GABA-529 PO; -LEVO-70 PO; +LEVO25CA4 PO; -LEVO50CA4 PO; -LIDOP TD; +METF-444 PO; -PANT40TA54 PO; -PREG100C55 PO; -SIME80TA12 PO; -ZINC220C6 PO
[2022-10-18 09:00] LABS: BASOPHILS % (AUTO) 1.1 % (0.0-5.0); EOSINOPHILS % (AUTO) 21.3 % (0.0-8.0); HEMATOCRIT 28.1 % (42-54); LYMPHOCYTES % (AUTO) 26.5 % (21.0-51.0); MEAN CORPUSCULAR HGB CONC 28.8 g/dL (32.0-36.0); MEAN CORPUSCULAR VOLUME 83.4 fL (79-99); MONOCYTES % (AUTO) 6.9 % (3.0-13.0); PLATELET COUNT (AUTO) 173 K/uL (130-400); RED BLOOD CELL COUNT(AUTO) 3.37 MIL/uL (4.50-6.20); RED CELL DISTRIBUTION WIDTH 17.2 % (11.0-15.5); WHITE BLOOD COUNT (AUTO) 5.5 K/uL (4.8-10.8)
[2022-10-18 09:27] LABS: ALBUMIN 3.5 g/dL (3.5-5.0); POTASSIUM 4.1 mmol/L (3.5-5.1); TOTAL PROTEIN, SERUM 7.6 g/dL (6.0-8.3)
[2022-10-18 09:53] LABS: INR 1.1 (0.85-1.15); PROTHROMBIN TIME 11.9 SEC (9.6-11.6)
[2022-10-18 09:54] LABS: PARTIAL THROMBOPLASTIN TIME 28.2 SEC (26.3-35.5)
== END | disposition home or self-care (01) ==
LOC: RAH 08:10
PROVIDERS: ATTEND Internal Medicine Gastroenterology
DX: K74.60 Unspecified cirrhosis of liver (principal)
CPT/HCPCS: 36415; 76700; 80053; 82105; 85025; 85610; 85730

== ENCOUNTER 2022-10-30 19:57 | Emergency (ER) | payer OTHER ==
[2022-10-30 20:28] LABS: BASOPHILS % (AUTO) 0.4 % (0.0-5.0); EOSINOPHILS % (AUTO) 8.4 % (0.0-8.0); HEMATOCRIT 24.9 % (42-54); LYMPHOCYTES % (AUTO) 20.8 % (21.0-51.0); MEAN CORPUSCULAR HEMOGLOBIN 23.4 pg (27.0-33.0); MEAN CORPUSCULAR HGB CONC 30.1 g/dL (32.0-36.0); MEAN CORPUSCULAR VOLUME 77.6 fL (79-99); NEUTROPHILS % (AUTO) 59.8 % (40.0-77.0); PLATELET COUNT (AUTO) 160 K/uL (130-400); RED BLOOD CELL COUNT(AUTO) 3.21 MIL/uL (4.50-6.20); RED CELL DISTRIBUTION WIDTH 17.6 % (11.0-15.5); WHITE BLOOD COUNT (AUTO) 8.1 K/uL (4.8-10.8)
[2022-10-30 20:43] LABS: CREATININE 1.1 mg/dL (0.5-1.5); TOTAL PROTEIN, SERUM 7.1 g/dL (6.0-8.3)
[2022-10-30 22:05] LABS: INFLUENZA TYPE A NEGATIVE FOR TYPE A (NEG); INFLUENZA TYPE B NEGATIVE FOR TYPE B (NEG)
[2022-10-30] MEDS ORDERED: ACETAMINOPHEN 325 MG TAB PO ONE (22:30)
[2022-10-30] MEDS ORDERED: 0.9%NACL 1000ML 1,000 ML IV ONE (23:30)
[2022-10-30] MEDS ORDERED: IPRATROPIUM/ALBUTEROL SULFATE 3 ML SOLUTION IH PRN (23:30)
[2022-10-30] MEDS ORDERED: AZITHROMYCIN 250 MG TABLET PO ONE (23:30)
[2022-10-30] MEDS ORDERED: SOLU-MEDROL 125MG VIAL IVP ONE (23:30)
[2022-10-30] MEDS ORDERED: CEFTRIAXONE 1G VIAL IV ONE (23:30)
[2022-10-31] MEDS ORDERED: ALBU90AE2 IH (00:07)
[2022-10-31] MEDS ORDERED: CEFU500T67 PO (00:07)
[2022-10-31] MEDS ORDERED: PRED20TA3 PO (00:07)
[2022-10-31] MEDS ORDERED: OMEP40CA21 PO (00:07)
[2022-10-31 00:44] VITALS: BP 110/55
== END 2022-10-31 01:00 | disposition home or self-care (01) ==
LOC: EDH 19:57
DX: J44.0 Chronic obstructive pulmonary disease with (acute) lower respiratory infection (principal); D64.9 Anemia, unspecified; F41.9 Anxiety disorder, unspecified; M19.90 Unspecified osteoarthritis, unspecified site; I25.10 Atherosclerotic heart disease of native coronary artery without angina pectoris; F32.A Depression, unspecified; E11.9 Type 2 diabetes mellitus without complications; K21.9 Gastro-esophageal reflux disease without esophagitis; E78.00 Pure hypercholesterolemia, unspecified; I10 Essential (primary) hypertension; Z86.16 Personal history of COVID-19; Z79.899 Other long term (current) drug therapy; Z20.822 Contact with and (suspected) exposure to COVID-19
CPT/HCPCS: 99285; 71045; 87635; 84484; 80053; 83880; 85025; 87804 ×2; 36415; 93005; 96374; 96361; 96375; C9803; J7030; J2930; J0696

== ENCOUNTER 2023-08-13 10:32 | Emergency (ER) | payer OTHER ==
[~2023-08-13] VITALS: Ht 162.6 cm; Wt 65.8 kg
[~2023-08-13 10:32] MED LIST changes: +ALBU90AE2 IH; +CEFU500T67 PO; +OMEP40CA21 PO; +PRED20TA3 PO
[2023-08-13] MEDS ORDERED: MORPHINE 2 MG SYG IVP ONE (11:00)
[2023-08-13] MEDS ORDERED: ONDANSETRON 4MG INJ IVP ONE (11:00)
[2023-08-13 11:28] LABS: BASOPHILS # (AUTO) 0.04 K/uL (0.00-0.20); BASOPHILS % (AUTO) 0.7 % (0.0-5.0); EOSINOPHILS # (AUTO) 0.34 K/uL (0.00-0.70); HEMATOCRIT 44.5 % (42-54); IMMATURE GRANULOCYTE ABSOLUTE 0.02 K/uL (0-1); LYMPHOCYTES # (AUTO) 1.1 K/uL (1.0-4.8); LYMPHOCYTES % (AUTO) 18.9 % (21.0-51.0); MEAN CORPUSCULAR HEMOGLOBIN 30.7 pg (27.0-33.0); MEAN CORPUSCULAR HGB CONC 32.8 g/dL (32.0-36.0); MEAN CORPUSCULAR VOLUME 93.5 fL (79-99); MONOCYTES # (AUTO) 0.6 K/uL (0.1-1.0); MONOCYTES % (AUTO) 9.8 % (3.0-13.0); NEUTROPHILS # (AUTO) 3.6 K/uL (1.8-7.7); NEUTROPHILS % (AUTO) 64.2 % (40.0-77.0); PLATELET COUNT (AUTO) 76 K/uL (130-400); RED BLOOD CELL COUNT(AUTO) 4.76 MIL/uL (4.50-6.20); RED CELL DISTRIBUTION WIDTH 14.3 % (11.0-15.5); WHITE BLOOD COUNT (AUTO) 5.6 K/uL (4.8-10.8)
[2023-08-13 11:34] LABS: CREATININE 1.1 mg/dL (0.5-1.5); POTASSIUM 4.2 mmol/L (3.5-5.1)
[2023-08-13 11:37] LABS: INR 1.07 (0.85-1.15); PROTHROMBIN TIME 12.4 SEC (9.6-11.6)
[2023-08-13 11:38] LABS: PARTIAL THROMBOPLASTIN TIME 31.7 SEC (26.3-35.5)
[2023-08-13 11:39] LABS: ALBUMIN 3.6 g/dL (3.5-5.0); BILIRUBIN,TOTAL 0.8 mg/dL (0.2-1.0); TOTAL PROTEIN, SERUM 7.9 g/dL (6.0-8.3)
[2023-08-13 11:49] LABS: RAPID GROUP A STREP negative (NEGATIVE)
[2023-08-13 12:05] LABS: INFLUENZA TYPE B Negative For Type B (NEGATIVE)
[2023-08-13 12:08] LABS: INFLUENZA TYPE A Positive For Type A (NEGATIVE)
[2023-08-13 12:15] LABS: SARS-CoV-2, RNA, NAAT NEGATIVE SARS CoV-2 (NEGATIVE)
[2023-08-13] MEDS ORDERED: ACETAMINOPHEN 500 MG TABLET PO ONE (13:00)
[2023-08-13 14:18] LABS: APPEARANCE,URINE CLEAR (CLEAR); BILIRUBIN,URINE NEGATIVE (NEGATIVE); COLOR,URINE LIGHT-YELLOW (YELLOW); GLUCOSE, URINE (UA) NEGATIVE (NEGATIVE); KETONES,URINE NEGATIVE (NEGATIVE); LEUKOCYTE ESTERASE ,URINE NEGATIVE Leu/uL (NEGATIVE); NITRATE,URINE NEGATIVE (NEGATIVE); OCCULT BLOOD,URINE NEGATIVE (NEGATIVE); PH,URINE 5.5 (5.0-8.0); PROTEIN,URINE NEGATIVE (NEGATIVE); UROBILINOGEN,URINE 0.2 mg/dL (0.2-1.0)
[2023-08-13 14:25] LABS: ADD UA MICROSCOPIC NO
[2023-08-13] MEDS ORDERED: OSEL75 PO (15:24)
[2023-08-13 15:48] VITALS: TEMP 99.3
[2023-08-13 15:58] VITALS: BP 100/62; PULSE 81; RESP 22; O2SAT 90
== END 2023-08-13 17:23 | disposition home or self-care (01) ==
LOC: EDH 10:32
DX: J10.1 Influenza due to other identified influenza virus with other respiratory manifestations (principal); F41.9 Anxiety disorder, unspecified; E03.9 Hypothyroidism, unspecified; E78.00 Pure hypercholesterolemia, unspecified; F32.A Depression, unspecified; J44.9 Chronic obstructive pulmonary disease, unspecified; K21.9 Gastro-esophageal reflux disease without esophagitis; M19.90 Unspecified osteoarthritis, unspecified site; Z79.02 Long term (current) use of antithrombotics/antiplatelets; Z79.84 Long term (current) use of oral hypoglycemic drugs; Z79.890 Hormone replacement therapy; Z79.899 Other long term (current) drug therapy; Z20.822 Contact with and (suspected) exposure to COVID-19
CPT/HCPCS: 99284; 96374; 87635; 96375; 82550; 84484; 80053; 85025; 85610; 85730; 87040 ×2; 87088; 87880; 87804 ×2; 83605; 81003; 36415; 93005; J2270; J2405

== ENCOUNTER → 2024-09-07 | Outpatient (CLI) | payer OTHER ==
[~2024-09-07] MED LIST changes: -ALBU90AE2 IH; +ALBU90AE3 IH; +OSEL75 PO
[2024-09-07 12:32] LABS: ALBUMIN 3.4 g/dL (3.5-5.0); BILIRUBIN,TOTAL 0.8 mg/dL (0.2-1.0); POTASSIUM 4.1 mmol/L (3.5-5.1); TOTAL PROTEIN, SERUM 7.7 g/dL (6.0-8.3)
== END | disposition home or self-care (01) ==
LOC: LAB 09:18
PROVIDERS: ATTEND Internal Medicine Cardiovascular Disease
DX: I10 Essential (primary) hypertension (principal); I25.118 Atherosclerotic heart disease of native coronary artery with other forms of angina pectoris
CPT/HCPCS: 36415; 80053

== ENCOUNTER → 2024-09-15 | Outpatient (CLI) | payer OTHER ==
[~2024-09-15] MED LIST changes: +IOHEXOL 350 MG/ML 100ML INFUS..BTL IV ONE; +metoPROLOL tartRATE 1 MG/ML 5ML VIAL IV ONE
--- NOTE | 2024-09-15 22:13 | HMCIMG ---
CT CARDIAC ANGIO W/CONT. CCTA HISTORY: Atherosclerotic heart disease COMPARISON: None TECHNIQUE: Multiple sequential axial images of the chest were obtained along with the CT angiogram of the chest study. Patient was given 100 cc of Omnipaque through intravenous route. FINDINGS: There are interstitial fibrosis with bronchiectasis. No pleural effusion or pericardial effusion is seen. There is no evidence of pneumothorax. There are normal size mediastinal and hilar lymph nodes. The heart is not enlarged. Degenerative changes of the thoracolumbar spine are present. IMPRESSION: 1. Interstitial fibrosis with bronchiectasis. Please see CT angiogram report of coronary arteries.
--- NOTE | 2024-09-16 20:26 | CARDIOLOGY ---
RAD REPORT: [facility] CT ANGIO RADIOLOGY REPORT: CORONARY CT ANGIOGRAPHY DATE: Sep 16, 2024 QUALITY: Excellent CLINICAL HISTORY AND INDICATION: [coronary artery bypass graft patency ] TECHNIQUE: After obtaining a preliminary hat trimmer image, contrast imaging performed on an [employer] [id number] scanner. A dedicated, limited window, coronary imaging protocol was used, with single breath-hold, retrospective ECG gating, and automated arrhythmia rejection. 100 cc of low osmolar contrast agent: Omnipaque 350 was delivered via a 18-gauge IV catheter in the right antecubital fossa, using a power injector and followed by 60 cc of normal saline bolus as a chaser. Collimated images were reformatted at 0.5 mm intervals, and sent to an offline independent workstation for interpretation, using 3D anatomic reconstructions: Curved multiplanar reconstructions, maximum intensity projections, and multiplanar imaging. 5 mg IV metoprolol was administered prior to scanning. 0.8 mg SL nitroglycerin was given. CORONARY ARTERY DESCRIPTIONS: The coronary arteries arise in normal position. Left main coronary artery: Normal caliber vessel that trifurcates into the LAD, ramus and LCx. No stenosis. Left anterior descending coronary artery: Normal caliber vessel and gives rise to diagonal and septal branches. Severe ostial and mid LAD stenosis. Ramus intermedius artery: Normal caliber, no stenosis. Left circumflex coronary artery: Normal caliber, nondominant and gives rise to a large OM branch. Severe proximal LCx. 60-70% stenosis of proximal OM1. Right coronary artery: Large, dominant vessel giving rise to the PL and PDA branches. DRAW PRESS OPERATOR proximal RCA with distal filling consistent with left to right collateral filling. Occluded SVG to RCA. Patent MCBRIDE to LAD. Patent SVG to D Patent SVG to OM 2. Occluded SVG to RCA. Thoracic Aorta: Normal diameter. Gertrudis Larson MD Cardiovascular Disease [facility] GERTRUDIS LARSON MD Sep 16, 2024 20:25
== END | disposition home or self-care (01) ==
LOC: RAH 08:52
PROVIDERS: ATTEND Internal Medicine Cardiovascular Disease
DX: I25.10 Atherosclerotic heart disease of native coronary artery without angina pectoris (principal); J47.9 Bronchiectasis, uncomplicated; J84.10 Pulmonary fibrosis, unspecified; M47.815 Spondylosis without myelopathy or radiculopathy, thoracolumbar region
CPT/HCPCS: 75574; J3490; Q9967